=== PATIENT | male | born 1955 | race Asian ===

== ENCOUNTER 2018-02-14 18:41 | Inpatient (IN) | payer MEDICAID ==
--- NOTE | 2018-02-14 19:02 | ED Physician Chart ---
ED Chief Complaint/HPI - Patient Information Date Seen:: 02/14/18 Time Seen:: 18:45 Chief Complaint:: vomiting and diarrhea History of Present Illness:: Patient's had 3-4 times vomiting and diarrhea today. Further history is not available because patient is nonverbal. Allergies:: Allergies Allergy/AdvReac Type Severity Reaction Status Date / Time No Known Allergies Allergy Verified 02/14/18 18:45 Vitals:: Vital Signs - 8 hr 02/14/18 18:45 Temp 99.0 F HR 90 RR 17 BP 100/70 O2 Sat % 94 Historian:: EMS Review:: Transfer documents Reviewed ED Review of Systems - Review of Systems General/Constitutional: No fever, No chills, No weight loss, No weakness, No diaphoresis, No edema, No loss of appetite Skin: No skin lesions, No rash, No bruising Head: No headache, No light-headedness Eyes: No loss of vision, No pain, No diplopia ENT: No earache, No nasal drainage, No sore throat, No tinnitus Neck: No neck pain, No swelling, No thyromegaly, No stiffness, No mass noted Cardio Vascular: No chest pain, No palpitations, No PND, No orthopnea, No edema Pulmonary: No SOB, No cough, No sputum, No wheezing GI: Vomiting, Diarrhea, No pain, No melena, No hematochezia, No constipation, No hematemesis G/U: No dysuria, No frequency, No hematuria Musculoskeletal: No bone or joint pain, No back pain, No muscle pain Endocrine: No polyuria, No polydipsia Psychiatric: No prior psych history, No depression, No anxiety, No suicidal ideation Hematopoietic: No bruising, No lymphadenopathy Allergic/Immuno: No urticaria, No angioedema Neurological: No syncope, No focal symptoms, No weakness, No paresthesia, No headache, No seizure, No dizziness, No confusion, No vertigo ED Past Medical History - Past Medical History Past Medical History: Arthritis, Other (cerebral palsy; mental retardation; osteoporosis) Family History: Other (unavailable) Social History: Care Facility Surgical History: other (unavailable) Psychiatricy History: Other (mental retardation) Medication: Reviewed Family Medical History - Family Member Mother History Unknown: Yes ED Physical Exam - Physical Examination General/Constitutional: No distress Other Gen/Cons comments:: Chronically ill-appearing; nonverbal; supine with mouth was wide open Head: Atraumatic Eyes: Lids, conjuctiva normal, PERRL Skin: Nl inspection, No rash ENMT: External ears, nose nl Neck: No nuchal rigidity Respiratory: Nl effort/Exclusion Other Cardio Vascular comments:: Heart sounds inaudible GI: No organomegaly, No hernia, Normal BS's, No mass/bruits Other GI comments:: 2 out of 4 abdominal distention : No CVA tenderness Other Extremities comments:: Contracture wrists and hands Other Neuro/Psych comments:: Nonverbal ED Labs/Radiology/EKG Results - Lab Results Results: Laboratory Results - last 24 hr 02/14/18 02/14/18 19:00 19:00 WBC 23.7 H* RBC 5.18 Hgb 17.1 Hct 49.8 MCV 96.0 MCH 33.1 H MCHC Differential 34.4 RDW 12.0 Plt Count 309 MPV 7.4 Add Manual Diff YES Band Neutrophils % 5 Neutrophils (Manual) 82 H Lymphocytes 8 L Monocytes 5 Eosinophils 0 Basophils 0 Platelet Estimate ADEQUATE Sodium 139 Potassium 5.1 Chloride 105 Carbon Dioxide 23.4 Anion Gap 15.7 BUN 37 H Creatinine 0.7 Est GFR ( Amer) > 60.0 Est GFR (Non-Af Amer) > 60.0 BUN/Creatinine Ratio 52.9 Glucose 136 H Calcium 10.8 H Magnesium 3.3 H Lipase 18 ED Septic Shock - . Is Septic Shock (SBP<90, OR Lactate>4 mmol\L) present?: No - <6hrs of presentation: Vital Signs: Vital Signs - 8 hr 02/14/18 18:45 Temp 99.0 F HR 90 RR 17 BP 100/70 O2 Sat % 94 ED Reassessment (Disposition) - Reassessment Reassessment Condition:: Unchanged - Diagnosis Diagnosis:: Severe gastroenteritis; dehydration; leukocytosis with a left shift; altered mental status due to medical disability - Patient Disposition Admitted to:: Med/Surg Spoke to:: Naveen Siddiqui Admitting Medical Physician:: Naveen Siddiqui Condition at Disposition:: Stable
[2018-02-14 19:13] LABS: HEMATOCRIT 49.8 % (41.0-60); HEMOGLOBIN 17.1 gm/dL (12-16); MEAN CORPUSCULAR HEMOGLOBIN 33.1 pg (26.0-30.0); MEAN CORPUSCULAR HGB CONC 34.4 pg (28.0-36.0); MEAN PLATELET VOLUME 7.4 fl; PLATELET COUNT 309 Th/cmm (150-400); RED BLOOD COUNT 5.18 Mil/cmm (4.30-5.70)
[2018-02-14 19:15] LABS: WHITE BLOOD COUNT 23.7 Th/cmm (4.8-10.8)
[2018-02-14 19:24] LABS: ANION GAP 15.7 (7.0-16.0); BUN - UREA NITROGEN 37 mg/dL (7-25); CALCIUM SERUM 10.8 mg/dL (8.6-10.3); CARBON DIOXIDE 23.4 mEq/L (21.0-31.0); CHLORIDE 105 mEq/L (98-107); CREATININE - SERUM 0.7 mg/dL (0.7-1.3); GFR AFRICAN-AMERICAN > 60.0 ml/min (>90); GFR NON AFRICAN-AMERICAN > 60.0 ml/min; GLUCOSE 136 mg/dL (70-105); LIPASE 18 U/L (11-82); MAGNESIUM 3.3 mg/dL (1.9-2.7); POTASSIUM SERUM 5.1 mEq/L (3.5-5.1); SODIUM SERUM 139 mEq/L (136-145)
[2018-02-14 19:30] LABS: BAND NEUTROPHILE 5 % (0-10); BASOPHIL 0 % (0-3); EOSINOPHIL 0 % (0-5); LYMPHOCYTE 8 % (20-50); MONOCYTE 5 % (2-10); NEUTROPHILS 82 % (40-80); PLATELET ESTIMATE ADEQUATE (NORMAL)
[2018-02-14] MEDS ORDERED: Sodium Chloride 0.9% 1,000 ML IV ONE (20:03)
[2018-02-14 21:37] VITALS: BP 80/59
[2018-02-14] MEDS ORDERED: Pneumococcal Vaccine 0.5 mL Vial IM ONE (22:08)
[2018-02-14] MEDS ORDERED: SUNSCREEN TP PRN (22:18)
[2018-02-14] MEDS ORDERED: Fleet Enema 135 mL RC PRN (22:18)
[2018-02-14] MEDS ORDERED: Magnesium Hydroxide (MOM) 30 mL UDC PO PRN (22:18)
[2018-02-14] MEDS ORDERED: Albumin 25% 25gm/100mL 25 GM/100 ML BTL IV ONE (22:22)
[2018-02-14] MEDS ORDERED: D5-0.9%NS 1,000 ML IV SCH (22:30)
[2018-02-15] MEDS: Levofloxacin 500mg/100mL 500 MG/100 ML BAG IV SCH ×2 (01:19→22:36)
[2018-02-15 03:19] LABS: URINE MICROSCOPIC INDICATED? YES; URINE SOURCE CATH
[2018-02-15 03:20] LABS: URINE BLOOD LARGE (NEGATIVE); URINE GLUCOSE (UA) NEGATIVE (NEGATIVE); URINE KETONE TRACE mg/dL (NEGATIVE); URINE LEUKOCYTE ESTERASE MODERATE (NEGATIVE); URINE NITRATE POSITIVE (NEGATIVE); URINE PH 5.5 (4.6 - 8.0); URINE PROTEIN 100 mg/dL (NEGATIVE)
[2018-02-15 03:26] LABS: URINE CLARITY CLOUDY (CLEAR); URINE COLOR ORANGE
[2018-02-15 03:30] LABS: URINE BACTERIA MANY /hpf (NONE SEEN); URINE EPITHELIAL CELLS FEW /lpf (FEW); URINE WBC 50-100 /hpf (0-5)
[2018-02-15 03:45] LABS: URINE BILIRUBIN MODERATE (NEGATIVE)
[2018-02-15] MEDS: metroNIDAZOLE 500mg/NS 100mL 500 MG/100 ML BAG IV SCH ×3 (05:12→21:16)
[2018-02-15 06:42] LABS: % BASOPHILS 0.2 % (0.0-2.0); % EOSINOPHILS 0.1 % (0.0-5.0); % LYMPHOCYTES 21.6 % (20.0-50.0); % MONOCYTES 14.2 % (2.0-10.0); % NEUTROPHILS 63.9 % (40.0-80.0); HEMOGLOBIN 14.2 gm/dL (12-16); LYMPHOCYTE ABSOLUTE 2.2 Th/cmm (1.5-3.0); MEAN CELL VOLUME 96.8 fl (80-99); MEAN CORPUSCULAR HEMOGLOBIN 32.7 pg (26.0-30.0); MEAN CORPUSCULAR HGB CONC 33.8 pg (28.0-36.0); MEAN PLATELET VOLUME 7.7 fl; MONOCYTE ABSOLUTE 1.4 Th/cmm (0.3-1.0); NEUTROPHILE ABSOLUTE 6.4 Th/cmm (1.8-8.0); PLATELET COUNT 263 Th/cmm (150-400); RED BLOOD COUNT 4.34 Mil/cmm (4.30-5.70); RED CELL DISTRIBUTION WIDTH 11.9 % (11.5-20.0)
[2018-02-15 06:59] LABS: ALB/GLOB RATIO 1.4 (1.0-1.8); ALKALINE PHOSPHATASE 53 U/L (34-104); BILIRUBIN,TOTAL 0.7 mg/dL (0.3-1.0); BUN - UREA NITROGEN 38 mg/dL (7-25); CARBON DIOXIDE 22.4 mEq/L (21.0-31.0); CHLORIDE 111 mEq/L (98-107); CREATININE - SERUM 0.8 mg/dL (0.7-1.3); GFR AFRICAN-AMERICAN > 60.0 ml/min (>90); GFR NON AFRICAN-AMERICAN > 60.0 ml/min; GLUCOSE 122 mg/dL (70-105); POTASSIUM SERUM 4.4 mEq/L (3.5-5.1); SGOT 14 U/L (13-39); SGPT/ALT 7 U/L (7-52); SODIUM SERUM 142 mEq/L (136-145); TOTAL PROTEIN,SERUM 6.8 gm/dL (6.0-8.3)
[2018-02-15] MEDS: Albuterol Nebulizer 2.5mg/3mL HHN SCH ×4 (07:19→19:53)
[2018-02-15] MEDS ORDERED: IOHEXOL 300mgI/mL 100 ML VIAL IVP ONE (09:25)
[2018-02-15] MEDS ORDERED: VTE Chemical Prophylaxis Screen/Admission MC PRN (09:34)
[2018-02-15] MEDS: Calcium Carb/Vit D 500 mg/200 U Tab PO SCH ×2 (10:23→16:11)
[2018-02-15] MEDS: Multivitamin w/ Minerals Tab PO SCH (10:24)
[2018-02-15] MEDS: Vitamin A/Vitamin D 5 gm Packet TP SCH ×2 (10:24→16:11)
--- NOTE | 2018-02-15 11:42 | Internal Medicine Prog Note ---
Internal Medicine Subjective - Subjective Service Date: 02/15/18 ([facility] [id number]) Internal Medicine Objective - Results Result Diagrams: 02/15/18 06:15 02/15/18 06:15 Recent Labs: Laboratory Last Values WBC 10.0 Th/cmm (4.8-10.8) D 02/15/18 06:15 RBC 4.34 Mil/cmm (4.30-5.70) 02/15/18 06:15 Hgb 14.2 gm/dL (12-16) 02/15/18 06:15 Hct 42.0 % (41.0-60) D 02/15/18 06:15 MCV 96.8 fl (80-99) 02/15/18 06:15 MCH 32.7 pg (26.0-30.0) H 02/15/18 06:15 MCHC Differential 33.8 pg (28.0-36.0) 02/15/18 06:15 RDW 11.9 % (11.5-20.0) 02/15/18 06:15 Plt Count 263 Th/cmm (150-400) 02/15/18 06:15 MPV 7.7 fl 02/15/18 06:15 Add Manual Diff YES 02/14/18 19:00 Neutrophils % 63.9 % (40.0-80.0) 02/15/18 06:15 Band Neutrophils % 5 % (0-10) 02/14/18 19:00 Lymphocytes % 21.6 % (20.0-50.0) 02/15/18 06:15 Monocytes % 14.2 % (2.0-10.0) H 02/15/18 06:15 Eosinophils % 0.1 % (0.0-5.0) 02/15/18 06:15 Basophils % 0.2 % (0.0-2.0) 02/15/18 06:15 Neutrophils (Manual) 82 % (40-80) H 02/14/18 19:00 Lymphocytes 8 % (20-50) L 02/14/18 19:00 Monocytes 5 % (2-10) 02/14/18 19:00 Eosinophils 0 % (0-5) 02/14/18 19:00 Basophils 0 % (0-3) 02/14/18 19:00 Platelet Estimate ADEQUATE (NORMAL) 02/14/18 19:00 Sodium 142 mEq/L (136-145) 02/15/18 06:15 Potassium 4.4 mEq/L (3.5-5.1) 02/15/18 06:15 Chloride 111 mEq/L (98-107) H 02/15/18 06:15 Carbon Dioxide 22.4 mEq/L (21.0-31.0) 02/15/18 06:15 Anion Gap 13.0 (7.0-16.0) 02/15/18 06:15 BUN 38 mg/dL (7-25) H 02/15/18 06:15 Creatinine 0.8 mg/dL (0.7-1.3) 02/15/18 06:15 Est GFR ( Amer) > 60.0 ml/min (>90) 02/15/18 06:15 Est GFR (Non-Af Amer) > 60.0 ml/min 02/15/18 06:15 BUN/Creatinine Ratio 47.5 02/15/18 06:15 Glucose 122 mg/dL (70-105) H 02/15/18 06:15 Whole Bld Lactic Acid 1.53 mmol/L (0.60-1.99) 02/14/18 19:40 Calcium 9.0 mg/dL (8.6-10.3) 02/15/18 06:15 Magnesium 3.3 mg/dL (1.9-2.7) H 02/14/18 19:00 Total Bilirubin 0.7 mg/dL (0.3-1.0) 02/15/18 06:15 AST 14 U/L (13-39) 02/15/18 06:15 ALT 7 U/L (7-52) 02/15/18 06:15 Alkaline Phosphatase 53 U/L (34-104) 02/15/18 06:15 B-Natriuretic Peptide 31.7 pg/mL (5.0-100.0) 02/15/18 06:15 Total Protein 6.8 gm/dL (6.0-8.3) 02/15/18 06:15 Albumin 4.0 gm/dL (4.2-5.5) L 02/15/18 06:15 Globulin 2.8 gm/dL 02/15/18 06:15 Albumin/Globulin Ratio 1.4 (1.0-1.8) 02/15/18 06:15 Lipase 18 U/L (11-82) 02/14/18 19:00 TSH 1.01 uIU/ml (0.34-5.60) 02/15/18 06:15 Urine Source CATH 02/15/18 02:30 Urine Color ORANGE 02/15/18 02:30 Urine Clarity CLOUDY (CLEAR) 02/15/18 02:30 Urine pH 5.5 (4.6 - 8.0) 02/15/18 02:30 Ur Specific [place] >= 1.030 (1.005-1.030) 02/15/18 02:30 Urine Protein 100 mg/dL (NEGATIVE) H 02/15/18 02:30 Urine Glucose (UA) NEGATIVE mg/dL (NEGATIVE) 02/15/18 02:30 Urine Ketones TRACE mg/dL (NEGATIVE) 02/15/18 02:30 Urine Blood LARGE (NEGATIVE) H 02/15/18 02:30 Urine Nitrate POSITIVE (NEGATIVE) H 02/15/18 02:30 Urine Bilirubin MODERATE (NEGATIVE) H 02/15/18 02:30 Urine Urobilinogen 2.0 E.U./dL (0.2 - 1.0) 02/15/18 02:30 Ur Leukocyte Esterase MODERATE (NEGATIVE) H 02/15/18 02:30 Urine RBC 2-5 /hpf (0-5) H 02/15/18 02:30 Urine WBC 50-100 /hpf (0-5) H 02/15/18 02:30 Ur Epithelial Cells FEW /lpf (FEW) 02/15/18 02:30 Urine Bacteria MANY /hpf (NONE SEEN) H 02/15/18 02:30 - Physical Exam Vitals and I&O: Vital Signs Temp 98.0 F 02/15/18 08:00 Pulse 92 02/15/18 10:23 Resp 18 02/15/18 10:23 BP 99/67 02/15/18 08:00 Pulse Ox 94 02/15/18 10:23 Intake & Output 02/14/18 02/15/18 02/15/18 18:59 06:59 18:59 Intake Total 1200 100 Balance 1200 100 Weight (lbs) 86 lb 86 lb Intake: Intake, IV Amount 1200 100 Levofloxacin 500mg/100mL 100 500 mg In 100 ml @ 100 mls/hr IV Q24HR [facility] Rx#: [id number] metroNIDAZOLE 500mg/NS 100 100mL 500 mg In 100 ml @ 100 mls/hr IV Q8HR [facility] Rx #:[id number] Other: # Voids 4 # Bowel Movements 6 Stool Characteristics Soft Liquid Formed Brown Weight Source Estimated Bedscale Active Medications: Current Medications Acetaminophen (Tylenol) 650 mg PO Q4HR PRN PRN Reason: PAIN OR TEMP >99.9 Stop: 04/15/18 22:17 Albuterol Sulfate (Albuterol 2.5mg/3ml Neb Ud) 2.5 mg HHN QIDRT [facility] Stop: 04/16/18 06:59 Last Admin: 02/15/18 10:22 Dose: 2.5 mg Betamethasone Dipropionate (Betamethasone Dip 0.05% Cream) 1 appl TP BID [facility] Stop: 04/16/18 08:59 Last Admin: 02/15/18 10:25 Dose: Not Given Calcium/Vitamin D (Oscal W/Vitamin D) 1 tab PO BID [facility] Stop: 04/16/18 08:59 Last Admin: 02/15/18 10:23 Dose: Not Given Heparin Sodium (Porcine) (Heparin) 5,000 units SUBQ Q12HR [facility] Stop: 04/16/18 08:59 Last Admin: 02/15/18 10:25 Dose: Not Given Dextrose/Sodium Chloride (D5-0.9%Ns) 1,000 mls @ 100 mls/hr IV .Q10H [facility] Stop: 04/15/18 22:29 Last Admin: 02/15/18 00:00 Dose: 100 mls/hr Levofloxacin (Levaquin Pb) 500 mg in 100 mls @ 100 mls/hr IV Q24HR [facility] Stop: 04/15/18 22:29 Last Infusion: 02/15/18 02:55 Dose: Infused Metronidazole (Flagyl) 500 mg in 100 mls @ 100 mls/hr IV Q8HR [facility] Stop: 04/16/18 04:59 Last Infusion: 02/15/18 08:18 Dose: Infused Magnesium Hydroxide (Milk Of Magnesia) 30 ml PO Q72HR PRN PRN Reason: MILD CONSTIPATION Stop: 04/15/18 22:17 Miscellaneous (Vte Chemical Prophylaxis Screen/ Admission) 1 ea MC PRN PRN PRN Reason: PROTOCOL Stop: 04/16/18 09:33 Ondansetron HCl (Zofran) 4 mg IV Q8H PRN PRN Reason: Nausea / Vomiting Stop: 04/15/18 22:21 Last Admin: 02/15/18 05:25 Dose: 4 mg Pantoprazole Sodium (Protonix) 40 mg IVP BID [facility] Stop: 04/16/18 08:59 Last Admin: 02/15/18 10:24 Dose: Not Given Sodium Phosphate (Fleet Enema) 135 ml RC Q96H PRN PRN Reason: SEVERE CONSTIPATION Stop: 04/15/18 22:17 Vitamin A (Vitamin A & D) 5 gm TP BID [facility] Stop: 04/16/18 08:59 Last Admin: 02/15/18 10:24 Dose: Not Given
--- NOTE | 2018-02-15 12:09 | Diagnostic Imaging Report ---
CT scan abdomen and pelvis with intravenous contrast HISTORY: Vomiting, diarrhea Total DLP equals 419 CTDI equals 8.9 Following administration of intravenous contrast, axial sections were obtained from the xiphoid process down to the pubic symphysis. The exam of the liver demonstrates subcentimeter hypodense lesions within the anterior segment of the right lobe consistent with small cysts. The spleen appears normal. No focal abnormality seen within the pancreas. The gallbladder is somewhat dilated. No intraluminal abnormalities. The exam of the right kidney demonstrates a double pigtail ureteral catheter. The proximal tip is in the renal pelvis near the ureteropelvic junction. The distal tip is within the urinary bladder. Several cysts noted in the cortex of the left kidney. The largest measures approximately 1.0 cm. There is dilatation of the right renal collecting system. The left kidney also demonstrates several cysts. The largest measures approximately 1.3 cm. There is a dilated collecting system. Dilatation of the proximal portion of the left ureter. Exact etiology uncertain. If necessary, a noncontrast CT scan would provide for assessment of potential urinary tract calculi. There is a severely distended stool-filled rectum and sigmoid colon. Associated marked dilatation of the lower descending colon. Moderate air filled dilatation of the transverse and ascending colon. Findings consistent with changes of a fecal impaction. No other abnormal masses or fluid collections seen within the pelvis. Scoliosis and degenerative changes seen to the spine. Deformity about the left hip with partial subluxation of the femoral head. Slight subluxation and deformity involves the right hip. IMPRESSION: 1. Markedly distended stool-filled rectum and sigmoid colon associated with changes of a fecal impaction. 2. Right ureteral catheter 3. Mild dilatation of the left renal collecting system and proximalmost portion of the left ureter. Exact etiology uncertain. If necessary, a noncontrast CT scan would provide assessment of potential urinary tract calculi. 4. Bilateral renal cysts. Small hepatic cysts also noted. 5. Scoliosis and degenerative changes to the spine 6. Deformity about the hips as noted above
--- NOTE | 2018-02-15 12:12 | Diagnostic Imaging Report ---
Abdominal sound HISTORY: Pain The exam is extremely limited due to patient contracture and a large amount of bowel gas. Limited views of the liver do not reveal an obvious focal lesion. The gallbladder appears normal. No calculi are seen. No biliary dilatation. Pancreas cannot be seen. The right kidney measures 9.0 x 4.6 x 5.5 cm. An 8 mm echogenic density is noted in the medullary region. This may be related to a ureteral catheter demonstrated on a CT scan performed at 1108 hours. Underlying calculi cannot be excluded. The left kidney small (3.5 x 4.6 x 4.7 cm. 2 echogenic foci measuring 0.8 and 1.2 cm are noted near the medullary region. These may be related to calculi. A noncontrast CT scan would provide further assessment of radiopaque calculi. Spleen is normal in size. No other retroperitoneal or intra-abdominal abnormalities. IMPRESSION: 1. Extremely limited exam due to patient contracture, limited mobility, and considerable bowel gas. 2. Small echogenic focus within the medullary region of the right kidney. This may be related to CT demonstrated ureteral catheter. 3. Small echogenic foci within the left kidney. These may be associated with calculi. No hydronephrosis. If necessary, a noncontrast CT scan would provide for assessment of potential urinary tract calculi.
--- NOTE | 2018-02-15 12:34 | History & Physical ---
ADMIT DATE: 02/15/[address] Naveen Siddiqui. CHIEF COMPLAINT: Vomiting and diarrhea. HISTORY OF PRESENT ILLNESS: This is a 62-year-old male who is a resident of [facility], who is admitted here to the med-surg unit due to 1-day history of vomiting and diarrhea. The patient did not have any fevers at the residential. The patient is a poor historian. PAST MEDICAL HISTORY: Arthritis, cerebral palsy, MR, osteoporosis. FAMILY HISTORY: Noncontributory. SOCIAL HISTORY: The patient is a resident of [facility], requiring 24-hour nursing care. MEDICATIONS: Please see medication list. FAMILY HISTORY: Noncontributory. REVIEW OF SYSTEMS: Unable to obtain due to patient's mental status. PHYSICAL EXAMINATION: GENERAL: The patient is well developed, well nourished, in no apparent distress. VITAL SIGNS: Temperature 98.0, heart rate 90, blood pressure 199/67, respiration 18, O2 97%. HEENT: Head; normocephalic, atraumatic. NECK: Supple. No mass. LUNGS: Clear bilaterally. HEART: Regular rate and rhythm. ABDOMEN: Soft, nontender. LABORATORY DATA: WBC 10.0, H and H 14.2/42.0, platelet of 263. Sodium 142, potassium 4.4, chloride 111, BUN 38, creatinine 0.8. The patient had a urinalysis done, positive for UTI. ASSESSMENT: 1. Intractable vomiting. 2. Diarrhea. 3. Acute urinary tract infection. 4. Leukocytosis. 5. Acute renal insufficiency, rule out acute dehydration. 6. Cerebral palsy, mitral regurgitation, osteoporosis. PLAN: The patient will be admitted to the med/surg unit. We will get a wound care consultation as well as GI. We will get a CT of the abdomen and pelvis as well as ultrasound of the abdomen. We will collect stool for C. diff and cultures. We will send urine for cultures as well. Keep patient on empiric IV antibiotics and IV fluids for hydration. Monitor the patient's electrolytes closely and monitor patient's blood pressure. We will continue to monitor this patient. JOB# [id number]
[2018-02-15] MEDS: D5-0.45NS 1,000 ML IV SCH (13:36)
[2018-02-15] MEDS ORDERED: Probiotic Screen MC PRN (13:46)
--- NOTE | 2018-02-16 00:43 | Consultation ---
DATE OF CONSULTATION: 02/15/2018 INPATIENT GASTROINTESTINAL CONSULTATION REFERRING PHYSICIAN: Naveen Siddiqui D.O. REASON FOR CONSULTATION: Vomiting and diarrhea. HISTORY OF PRESENT ILLNESS: This is a 62-year-old male with vomiting and diarrhea and therefore was sent to the hospital. The patient is a poor historian, unable to give any meaningful history. PAST MEDICAL HISTORY: Cerebral palsy, mental retardation, osteoporosis. PAST SURGICAL HISTORY: None to add recently. FAMILY HISTORY: Noncontributory. SOCIAL HISTORY: Resident of skilled facility. ALLERGIES: None. CURRENT MEDICATIONS: Tylenol, heparin, Levaquin, milk of magnesia, Flagyl, Zofran, Protonix, Fleet enema, vitamin A and D. REVIEW OF SYSTEMS: Unobtainable. PHYSICAL EXAMINATION: VITAL SIGNS: Temperature 98.5, breathing 18, pulse of 90, blood pressure is 116/65, satting 93%. GENERAL: In no apparent distress. HEENT: Eyes are anicteric. Normal conjunctivae. Normocephalic, atraumatic. Moist mucous membranes. NECK: Soft, supple. CHEST: Clear. No effort. CARDIOVASCULAR: Regular rate and rhythm. ABDOMEN: Soft, nontender, mildly distended. SKIN: Warm, dry. EXTREMITIES: Revealed no cyanosis. PSYCHOLOGICAL: Awake. LABORATORY DATA: Show white count of 10, hemoglobin 14.2, platelets of 263. Total bilirubin 0.7, AST 14, ALT 7, alkaline phosphatase 53. Lipase is 18. UA is positive. IMPRESSION: A 62-year-old male with vomiting and diarrhea of unclear etiology, could be from infectious etiology, could be paradoxical overflow diarrhea or underlying constipation, could be ileus versus obstruction, could be gallstones. RECOMMENDATIONS: 1. Get a CT abdomen and pelvis. 2. Check stool studies. 3. Check an abdominal ultrasound. 4. Defer UTI management to the primary doctor. Thank you for allowing me to participate. Please call me if you have any questions. JOB# [id number]
[2018-02-16] MEDS: metroNIDAZOLE 500mg/NS 100mL 500 MG/100 ML BAG IV SCH ×3 (04:48→22:03)
[2018-02-16] MEDS: D5-0.45NS 1,000 ML IV SCH ×2 (04:49→17:02)
[2018-02-16 07:04] LABS: % BASOPHILS 0.2 % (0.0-2.0); % EOSINOPHILS 0.4 % (0.0-5.0); % LYMPHOCYTES 27.7 % (20.0-50.0); % NEUTROPHILS 57.7 % (40.0-80.0); HEMATOCRIT 37.9 % (41.0-60); MEAN CELL VOLUME 98.1 fl (80-99); MEAN CORPUSCULAR HEMOGLOBIN 33.6 pg (26.0-30.0); MEAN CORPUSCULAR HGB CONC 34.2 pg (28.0-36.0); MEAN PLATELET VOLUME 7.6 fl; NEUTROPHILE ABSOLUTE 4.1 Th/cmm (1.8-8.0); PLATELET COUNT 238 Th/cmm (150-400); RED BLOOD COUNT 3.87 Mil/cmm (4.30-5.70); RED CELL DISTRIBUTION WIDTH 11.8 % (11.5-20.0); WHITE BLOOD COUNT 7.1 Th/cmm (4.8-10.8)
[2018-02-16 07:20] LABS: ANION GAP 9.2 (7.0-16.0); BUN - UREA NITROGEN 23 mg/dL (7-25); CALCIUM SERUM 8.2 mg/dL (8.6-10.3); CHLORIDE 114 mEq/L (98-107); CREATININE - SERUM 0.6 mg/dL (0.7-1.3); GFR AFRICAN-AMERICAN > 60.0 ml/min (>90); GFR NON AFRICAN-AMERICAN > 60.0 ml/min; GLUCOSE 96 mg/dL (70-105); POTASSIUM SERUM 3.2 mEq/L (3.5-5.1); SODIUM SERUM 144 mEq/L (136-145)
[2018-02-16] MEDS: Albuterol Nebulizer 2.5mg/3mL HHN SCH ×4 (07:26→19:21)
[2018-02-16] MEDS: Lactobacillus Rhamnosus GG 15 Billion CFU CAP.SPRINK PO SCH (09:56)
[2018-02-16] MEDS: Multivitamin w/ Minerals Tab PO SCH (09:56)
[2018-02-16] MEDS: Vitamin A/Vitamin D 5 gm Packet TP SCH ×2 (09:56→16:56)
[2018-02-16] MEDS: Calcium Carb/Vit D 500 mg/200 U Tab PO SCH ×2 (09:56→16:56)
--- NOTE | 2018-02-16 15:03 | Internal Medicine Prog Note ---
Internal Medicine Subjective - Subjective Service Date: 02/16/18 Patient seen and examined:: with staff Patient is:: awake, non-verbal Per staff patient has:: no adverse event Internal Medicine Objective - Results Result Diagrams: 02/16/18 06:22 02/16/18 06:22 Recent Labs: Laboratory Last Values WBC 7.1 Th/cmm (4.8-10.8) 02/16/18 06:22 RBC 3.87 Mil/cmm (4.30-5.70) L 02/16/18 06:22 Hgb 13.0 gm/dL (12-16) 02/16/18 06:22 Hct 37.9 % (41.0-60) L 02/16/18 06:22 MCV 98.1 fl (80-99) 02/16/18 06:22 MCH 33.6 pg (26.0-30.0) H 02/16/18 06:22 MCHC Differential 34.2 pg (28.0-36.0) 02/16/18 06:22 RDW 11.8 % (11.5-20.0) 02/16/18 06:22 Plt Count 238 Th/cmm (150-400) 02/16/18 06:22 MPV 7.6 fl 02/16/18 06:22 Add Manual Diff YES 02/14/18 19:00 Neutrophils % 57.7 % (40.0-80.0) 02/16/18 06:22 Band Neutrophils % 5 % (0-10) 02/14/18 19:00 Lymphocytes % 27.7 % (20.0-50.0) 02/16/18 06:22 Monocytes % 14.0 % (2.0-10.0) H 02/16/18 06:22 Eosinophils % 0.4 % (0.0-5.0) 02/16/18 06:22 Basophils % 0.2 % (0.0-2.0) 02/16/18 06:22 Neutrophils (Manual) 82 % (40-80) H 02/14/18 19:00 Lymphocytes 8 % (20-50) L 02/14/18 19:00 Monocytes 5 % (2-10) 02/14/18 19:00 Eosinophils 0 % (0-5) 02/14/18 19:00 Basophils 0 % (0-3) 02/14/18 19:00 Platelet Estimate ADEQUATE (NORMAL) 02/14/18 19:00 Sodium 144 mEq/L (136-145) 02/16/18 06:22 Potassium 3.2 mEq/L (3.5-5.1) L 02/16/18 06:22 Chloride 114 mEq/L (98-107) H 02/16/18 06:22 Carbon Dioxide 24.0 mEq/L (21.0-31.0) 02/16/18 06:22 Anion Gap 9.2 (7.0-16.0) 02/16/18 06:22 BUN 23 mg/dL (7-25) 02/16/18 06:22 Creatinine 0.6 mg/dL (0.7-1.3) L 02/16/18 06:22 Est GFR ( Amer) > 60.0 ml/min (>90) 02/16/18 06:22 Est GFR (Non-Af Amer) > 60.0 ml/min 02/16/18 06:22 BUN/Creatinine Ratio 38.3 02/16/18 06:22 Glucose 96 mg/dL (70-105) 02/16/18 06:22 Whole Bld Lactic Acid 1.53 mmol/L (0.60-1.99) 02/14/18 19:40 Calcium 8.2 mg/dL (8.6-10.3) L 02/16/18 06:22 Magnesium 3.3 mg/dL (1.9-2.7) H 02/14/18 19:00 Total Bilirubin 0.7 mg/dL (0.3-1.0) 02/15/18 06:15 AST 14 U/L (13-39) 02/15/18 06:15 ALT 7 U/L (7-52) 02/15/18 06:15 Alkaline Phosphatase 53 U/L (34-104) 02/15/18 06:15 B-Natriuretic Peptide 31.7 pg/mL (5.0-100.0) 02/15/18 06:15 Total Protein 6.8 gm/dL (6.0-8.3) 02/15/18 06:15 Albumin 4.0 gm/dL (4.2-5.5) L 02/15/18 06:15 Globulin 2.8 gm/dL 02/15/18 06:15 Albumin/Globulin Ratio 1.4 (1.0-1.8) 02/15/18 06:15 Lipase 18 U/L (11-82) 02/14/18 19:00 TSH 1.01 uIU/ml (0.34-5.60) 02/15/18 06:15 Urine Source CATH 02/15/18 02:30 Urine Color ORANGE 02/15/18 02:30 Urine Clarity CLOUDY (CLEAR) 02/15/18 02:30 Urine pH 5.5 (4.6 - 8.0) 02/15/18 02:30 Ur Specific [place] >= 1.030 (1.005-1.030) 02/15/18 02:30 Urine Protein 100 mg/dL (NEGATIVE) H 02/15/18 02:30 Urine Glucose (UA) NEGATIVE mg/dL (NEGATIVE) 02/15/18 02:30 Urine Ketones TRACE mg/dL (NEGATIVE) 02/15/18 02:30 Urine Blood LARGE (NEGATIVE) H 02/15/18 02:30 Urine Nitrate POSITIVE (NEGATIVE) H 02/15/18 02:30 Urine Bilirubin MODERATE (NEGATIVE) H 02/15/18 02:30 Urine Urobilinogen 2.0 E.U./dL (0.2 - 1.0) 02/15/18 02:30 Ur Leukocyte Esterase MODERATE (NEGATIVE) H 02/15/18 02:30 Urine RBC 2-5 /hpf (0-5) H 02/15/18 02:30 Urine WBC 50-100 /hpf (0-5) H 02/15/18 02:30 Ur Epithelial Cells FEW /lpf (FEW) 02/15/18 02:30 Urine Bacteria MANY /hpf (NONE SEEN) H 02/15/18 02:30 - Physical Exam Vitals and I&O: Vital Signs Temp 97.0 F 02/16/18 12:19 Pulse 61 02/16/18 12:19 Resp 18 02/16/18 12:19 BP 109/69 02/16/18 12:19 Pulse Ox 98 02/16/18 12:19 Intake & Output 02/15/18 02/16/18 02/16/18 18:59 06:59 18:59 Intake Total 200 1300 Balance 200 1300 Weight (lbs) 86 lb Intake: Intake, IV Amount 200 1300 D5-0.45NS 1,000 ml @ 80 1000 mls/hr IV .[id number] [facility] Rx #:[id number] Levofloxacin 500mg/100mL 100 500 mg In 100 ml @ 100 mls/hr IV Q24HR [facility] Rx#: [id number] metroNIDAZOLE 500mg/NS 200 200 100mL 500 mg In 100 ml @ 100 mls/hr IV Q8HR [facility] Rx #:[id number] Other: # Voids 3 Stool Characteristics Liquid Liquid Weight Source Bedscale Active Medications: Current Medications Acetaminophen (Tylenol) 650 mg PO Q4HR PRN PRN Reason: PAIN OR TEMP >99.9 Stop: 04/15/18 22:17 Albuterol Sulfate (Albuterol 2.5mg/3ml Neb Ud) 2.5 mg HHN QIDRT [facility] Stop: 04/16/18 06:59 Last Admin: 02/16/18 11:37 Dose: 2.5 mg Betamethasone Dipropionate (Betamethasone Dip 0.05% Cream) 1 appl TP BID [facility] Stop: 04/16/18 08:59 Last Admin: 02/16/18 09:56 Dose: 1 appl Calcium/Vitamin D (Oscal W/Vitamin D) 1 tab PO BID [facility] Stop: 04/16/18 08:59 Last Admin: 02/16/18 09:56 Dose: 1 tab Heparin Sodium (Porcine) (Heparin) 5,000 units SUBQ Q12HR [facility] Stop: 04/16/18 08:59 Last Admin: 02/16/18 10:16 Dose: 5,000 units Levofloxacin (Levaquin Pb) 500 mg in 100 mls @ 100 mls/hr IV Q24HR [facility] Stop: 04/15/18 22:29 Last Infusion: 02/15/18 23:36 Dose: Infused Metronidazole (Flagyl) 500 mg in 100 mls @ 100 mls/hr IV Q8HR [facility] Stop: 04/16/18 04:59 Last Admin: 02/16/18 13:11 Dose: 100 mls/hr Dextrose/Sodium Chloride (D5-0.45ns) 1,000 mls @ 80 mls/hr IV .[id number] [facility] Stop: 04/16/18 12:59 Last Admin: 02/16/18 04:49 Dose: 80 mls/hr Lactobacillus Rhamnosus (Culturelle 15b) 1 each PO DAILY [facility] Stop: 04/17/18 08:59 Last Admin: 02/16/18 09:56 Dose: 1 each Loperamide HCl (Imodium) 4 mg PO Q4HR PRN PRN Reason: Diarrhea Stop: 04/16/18 16:30 Magnesium Hydroxide (Milk Of Magnesia) 30 ml PO Q72HR PRN PRN Reason: MILD CONSTIPATION Stop: 04/15/18 22:17 Midodrine (Proamatine) 5 mg PO TID [facility] Stop: 04/17/18 08:59 Last Admin: 02/16/18 13:16 Dose: 5 mg Miscellaneous (Vte Chemical Prophylaxis Screen/ Admission) 1 ea PRN PRN PRN Reason: PROTOCOL Stop: 04/16/18 09:33 Miscellaneous (Probiotic Screen) 1 [facility] [place] PRN PRN PRN Reason: PROTOCOL Stop: 04/16/18 13:45 Ondansetron HCl (Zofran) 4 mg IV Q8H PRN PRN Reason: Nausea / Vomiting Stop: 04/15/18 22:21 Last Admin: 02/15/18 05:25 Dose: 4 mg Pantoprazole Sodium (Protonix) 40 mg IVP BID [facility] Stop: 04/16/18 08:59 Last Admin: 02/16/18 09:56 Dose: 40 mg Sodium Phosphate (Fleet Enema) 135 ml RC Q96H PRN PRN Reason: SEVERE CONSTIPATION Stop: 04/15/18 22:17 Vitamin A (Vitamin A & D) 5 gm TP BID [facility] Stop: 04/16/18 08:59 Last Admin: 02/16/18 09:56 Dose: 5 gm General: alert HEENT: NC/AT, PERRLA Neck: Supple Lungs: CTAB Cardiovascular: RRR, Normal S1, without murmur Abdomen: soft, non-tender, non-distended, positive bowel sound Internal Medicine Assmt/Plan - Assessment Assessment: intractable vomiting diarrhea acute uti leukocytosis acute renal insufficiency r/o acute dehydration cerebral palsy mitral regurgitation osteoporosis - Plan Plan: continue ivf for hydration iv antibiotic to continue follow up labs in am continue current plan of care Nutritional Asmnt/Malnutr-PDOC - Dietary Evaluation Malnutrition Findings (Please click <Entered> for more info): Nutritional Asmnt/Malnutrition Start: 02/15/18 15: 34 Text: Status: Complete Freq: Protocol: Document 02/15/18 15:36 LCANNE (Rec: 02/15/18 16:11 LCANNE [email or web address]) Nutritional Asmnt/Malnutrition Patient General Information Nutritional Screening High Risk Diagnosis gastroenteritis, dehydration Pertinent Medical Hx/Surgical Hx arthritis, CP, mental retardation, osteoporosis Subjective Information Pt seen lying in bed at time of visit, non-verbal. Per nurse note, pt had several liquid stool today, sent for C diff test, no vomiting noted. Current Diet Order/ Nutrition Support NPO Pertinent Medications oscal w/vit D, D5-0.45ns, culturelle, levaquin, protonix , zofran, Christina&D Pertinent Labs 02/15 Cl 111, BUN 36, Glucose 122 Nutritional Hx/Data Height 5 ft Height (Calculated Centimeters) 152.4 Current Weight (lbs) 86 lb Weight (Calculated Kilograms) 39.0 Weight (Calculated Grams) [address]11.9 [place] Body Weight 106 Body Mass Index (BMI) 16.7 Weight Status Underweight GI Symptoms GI Symptoms Diarrhea Last BM 02/15 Skin Integrity/Comment: discoloration on buttocks, right and left buttocks blanchable redness Estimated Nutritional Goals BEE in Kcals: Using Current wt Calories/Kcals/Kg 30-35 Kcals Calculated 5011-6606 Protein: Using Current wt Protein g/k.2-1.4 Protein Calculated 48-56 Fluid: ml 1200-1400ml (1ml/kcal) Nutritional Problem 1. Problem Problem inadequate food intake Etiology diarrhea Signs/Symptoms: pt on NPO Malnutrition Alert Is there a minimum of two criteria No selected? Query Text:Check all the applicable criteria. A minimum of two criteria are recommended for diagnosis of either severe or non-severe malnutrition. Malnutrition Related to Morbid Obesity Malnutrition related to morbid obesity No Intervention/Recommendation Comments 1. Monitor NPO status. Start with clear liquid diet as tolerated if medically appropriate. 2. Monitor GI function, wt, labs and skin integrity 3. F/U as high risk in 2-3 days, 02/17-02/18 Expected Outcomes/Goals Expected Outcomes/Goals 1. PO intake to meet at least 75% of nutritional needs. 2. Wt stability, GI function to improve, skin to remain intact, labs to approach WNL.
[2018-02-16] MEDS: Levofloxacin 500mg/100mL 500 MG/100 ML BAG IV SCH (23:57)
[2018-02-17] MEDS: metroNIDAZOLE 500mg/NS 100mL 500 MG/100 ML BAG IV SCH ×3 (04:43→20:27)
[2018-02-17] MEDS: Albuterol Nebulizer 2.5mg/3mL HHN SCH ×4 (06:25→19:20)
[2018-02-17] MEDS: Multivitamin w/ Minerals Tab PO SCH (09:54)
[2018-02-17] MEDS: Calcium Carb/Vit D 500 mg/200 U Tab PO SCH ×2 (09:54→16:57)
[2018-02-17] MEDS: Vitamin A/Vitamin D 5 gm Packet TP SCH ×2 (09:55→16:59)
[2018-02-17] MEDS: Lactobacillus Rhamnosus GG 15 Billion CFU CAP.SPRINK PO SCH (09:55)
[2018-02-17] MEDS: D5-0.45NS 1,000 ML IV SCH (10:11)
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
--- NOTE | 2018-02-17 15:52 | Internal Medicine Prog Note ---
Internal Medicine Subjective - Subjective Service Date: 02/17/18 Patient is:: awake, non-verbal Per staff patient has:: no adverse event Internal Medicine Objective - Results Result Diagrams: 02/16/18 06:22 02/16/18 06:22 Recent Labs: Laboratory Last Values WBC 7.1 Th/cmm (4.8-10.8) 02/16/18 06:22 RBC 3.87 Mil/cmm (4.30-5.70) L 02/16/18 06:22 Hgb 13.0 gm/dL (12-16) 02/16/18 06:22 Hct 37.9 % (41.0-60) L 02/16/18 06:22 MCV 98.1 fl (80-99) 02/16/18 06:22 MCH 33.6 pg (26.0-30.0) H 02/16/18 06:22 MCHC Differential 34.2 pg (28.0-36.0) 02/16/18 06:22 RDW 11.8 % (11.5-20.0) 02/16/18 06:22 Plt Count 238 Th/cmm (150-400) 02/16/18 06:22 MPV 7.6 fl 02/16/18 06:22 Add Manual Diff YES 02/14/18 19:00 Neutrophils % 57.7 % (40.0-80.0) 02/16/18 06:22 Band Neutrophils % 5 % (0-10) 02/14/18 19:00 Lymphocytes % 27.7 % (20.0-50.0) 02/16/18 06:22 Monocytes % 14.0 % (2.0-10.0) H 02/16/18 06:22 Eosinophils % 0.4 % (0.0-5.0) 02/16/18 06:22 Basophils % 0.2 % (0.0-2.0) 02/16/18 06:22 Neutrophils (Manual) 82 % (40-80) H 02/14/18 19:00 Lymphocytes 8 % (20-50) L 02/14/18 19:00 Monocytes 5 % (2-10) 02/14/18 19:00 Eosinophils 0 % (0-5) 02/14/18 19:00 Basophils 0 % (0-3) 02/14/18 19:00 Platelet Estimate ADEQUATE (NORMAL) 02/14/18 19:00 Sodium 144 mEq/L (136-145) 02/16/18 06:22 Potassium 3.2 mEq/L (3.5-5.1) L 02/16/18 06:22 Chloride 114 mEq/L (98-107) H 02/16/18 06:22 Carbon Dioxide 24.0 mEq/L (21.0-31.0) 02/16/18 06:22 Anion Gap 9.2 (7.0-16.0) 02/16/18 06:22 BUN 23 mg/dL (7-25) 02/16/18 06:22 Creatinine 0.6 mg/dL (0.7-1.3) L 02/16/18 06:22 Est GFR ( Amer) > 60.0 ml/min (>90) 02/16/18 06:22 Est GFR (Non-Af Amer) > 60.0 ml/min 02/16/18 06:22 BUN/Creatinine Ratio 38.3 02/16/18 06:22 Glucose 96 mg/dL (70-105) 02/16/18 06:22 Whole Bld Lactic Acid 1.53 mmol/L (0.60-1.99) 02/14/18 19:40 Calcium 8.2 mg/dL (8.6-10.3) L 02/16/18 06:22 Magnesium 3.3 mg/dL (1.9-2.7) H 02/14/18 19:00 Total Bilirubin 0.7 mg/dL (0.3-1.0) 02/15/18 06:15 AST 14 U/L (13-39) 02/15/18 06:15 ALT 7 U/L (7-52) 02/15/18 06:15 Alkaline Phosphatase 53 U/L (34-104) 02/15/18 06:15 B-Natriuretic Peptide 31.7 pg/mL (5.0-100.0) 02/15/18 06:15 Total Protein 6.8 gm/dL (6.0-8.3) 02/15/18 06:15 Albumin 4.0 gm/dL (4.2-5.5) L 02/15/18 06:15 Globulin 2.8 gm/dL 02/15/18 06:15 Albumin/Globulin Ratio 1.4 (1.0-1.8) 02/15/18 06:15 Lipase 18 U/L (11-82) 02/14/18 19:00 TSH 1.01 uIU/ml (0.34-5.60) 02/15/18 06:15 Urine Source CATH 02/15/18 02:30 Urine Color ORANGE 02/15/18 02:30 Urine Clarity CLOUDY (CLEAR) 02/15/18 02:30 Urine pH 5.5 (4.6 - 8.0) 02/15/18 02:30 Ur Specific [place] >= 1.030 (1.005-1.030) 02/15/18 02:30 Urine Protein 100 mg/dL (NEGATIVE) H 02/15/18 02:30 Urine Glucose (UA) NEGATIVE mg/dL (NEGATIVE) 02/15/18 02:30 Urine Ketones TRACE mg/dL (NEGATIVE) 02/15/18 02:30 Urine Blood LARGE (NEGATIVE) H 02/15/18 02:30 Urine Nitrate POSITIVE (NEGATIVE) H 02/15/18 02:30 Urine Bilirubin MODERATE (NEGATIVE) H 02/15/18 02:30 Urine Urobilinogen 2.0 E.U./dL (0.2 - 1.0) 02/15/18 02:30 Ur Leukocyte Esterase MODERATE (NEGATIVE) H 02/15/18 02:30 Urine RBC 2-5 /hpf (0-5) H 02/15/18 02:30 Urine WBC 50-100 /hpf (0-5) H 02/15/18 02:30 Ur Epithelial Cells FEW /lpf (FEW) 02/15/18 02:30 Urine Bacteria MANY /hpf (NONE SEEN) H 02/15/18 02:30 - Physical Exam Vitals and I&O: Vital Signs Temp 97.4 F 02/17/18 12:38 Pulse 80 02/17/18 15:10 Resp 16 02/17/18 15:10 BP 104/51 02/17/18 12:38 Pulse Ox 98 02/17/18 15:10 Intake & Output 02/16/18 02/17/18 02/17/18 18:59 06:59 18:59 Intake Total 9534.237 9534 Balance 5303.848 6701 Weight (lbs) 86 lb Intake: Intake, IV Amount 0994.640 6650 D5-0.45NS 1,000 ml @ 80 450.872 3677 mls/hr IV .[id number] [facility] Rx #:[id number] Levofloxacin 500mg/100mL 100 500 mg In 100 ml @ 100 mls/hr IV Q24HR [facility] Rx#: [id number] metroNIDAZOLE 500mg/NS 100 200 100mL 500 mg In 100 ml @ 100 mls/hr IV Q8HR [facility] Rx #:[id number] Oral 100 Other: # Voids 2 # Bowel Movements 2 Stool Characteristics Liquid Liquid Liquid Weight Source Bedscale Active Medications: Current Medications Acetaminophen (Tylenol) 650 mg PO Q4HR PRN PRN Reason: PAIN OR TEMP >99.9 Stop: 04/15/18 22:17 Last Admin: 02/17/18 04:15 Dose: 650 mg Albuterol Sulfate (Albuterol 2.5mg/3ml Neb Ud) 2.5 mg HHN QIDRT [facility] Stop: 04/16/18 06:59 Last Admin: 02/17/18 15:10 Dose: 2.5 mg Betamethasone Dipropionate (Betamethasone Dip 0.05% Cream) 1 appl TP BID [facility] Stop: 04/16/18 08:59 Last Admin: 02/17/18 09:55 Dose: 1 appl Bisacodyl (Dulcolax 5 Mg Ec Tab) 10 mg PO X1 ONE Stop: 02/17/18 16:01 Calcium/Vitamin D (Oscal W/Vitamin D) 1 tab PO BID [facility] Stop: 04/16/18 08:59 Last Admin: 02/17/18 09:54 Dose: 1 tab Heparin Sodium (Porcine) (Heparin) 5,000 units SUBQ Q12HR [facility] Stop: 04/16/18 08:59 Last Admin: 02/17/18 09:55 Dose: 5,000 units Levofloxacin (Levaquin Pb) 500 mg in 100 mls @ 100 mls/hr IV Q24HR [facility] Stop: 04/15/18 22:29 Last Infusion: 02/17/18 04:02 Dose: Infused Metronidazole (Flagyl) 500 mg in 100 mls @ 100 mls/hr IV Q8HR [facility] Stop: 04/16/18 04:59 Last Admin: 02/17/18 12:28 Dose: 100 mls/hr Dextrose/Sodium Chloride (D5-0.45ns) 1,000 mls @ 80 mls/hr IV .[id number] [facility] Stop: 04/16/18 12:59 Last Admin: 02/17/18 10:11 Dose: 80 mls/hr Lactobacillus Rhamnosus (Culturelle 15b) 1 each PO DAILY [facility] Stop: 04/17/18 08:59 Last Admin: 02/17/18 09:55 Dose: 1 each Loperamide HCl (Imodium) 4 mg PO Q4HR PRN PRN Reason: Diarrhea Stop: 04/16/18 16:30 Magnesium Hydroxide (Milk Of Magnesia) 30 ml PO Q72HR PRN PRN Reason: MILD CONSTIPATION Stop: 04/15/18 22:17 Midodrine (Proamatine) 5 mg PO TID [facility] Stop: 04/17/18 08:59 Last Admin: 02/17/18 14:22 Dose: 5 mg Miscellaneous (Vte Chemical Prophylaxis Screen/ Admission) 1 ea PRN PRN PRN Reason: PROTOCOL Stop: 04/16/18 09:33 Miscellaneous (Probiotic Screen) 1 ea PRN PRN PRN Reason: PROTOCOL Stop: 04/16/18 13:45 Ondansetron HCl (Zofran) 4 mg IV Q8H PRN PRN Reason: Nausea / Vomiting Stop: 04/15/18 22:21 Last Admin: 02/15/18 05:25 Dose: 4 mg Pantoprazole Sodium (Protonix) 40 mg IVP BID [facility] Stop: 04/16/18 08:59 Last Admin: 02/17/18 09:55 Dose: 40 mg Sodium Phosphate (Fleet Enema) 135 ml RC Q96H PRN PRN Reason: SEVERE CONSTIPATION Stop: 04/15/18 22:17 Vitamin A (Vitamin A & D) 5 gm TP BID [facility] Stop: 04/16/18 08:59 Last Admin: 02/17/18 09:55 Dose: 5 gm General: alert HEENT: NC/AT, PERRLA Neck: Supple Lungs: CTAB Cardiovascular: RRR, Normal S1, without murmur Abdomen: soft, non-tender, non-distended, positive bowel sound Internal Medicine Assmt/Plan - Assessment Assessment: intractable vomiting-resolved diarrhea-resolved acute uti with esbl e.coli urine leukocytosis acute renal insufficiency r/o acute dehydration cerebral palsy mitral regurgitation osteoporosis - Plan Plan: LTAC EVAL continue ivf for hydration iv antibiotic to continue follow up labs in am continue current plan of care Nutritional Asmnt/Malnutr-PDOC - Dietary Evaluation Malnutrition Findings (Please click <Entered> for more info): Nutritional Asmnt/Malnutrition Start: 02/15/18 15: 34 Text: Status: Complete Freq: Protocol: Document 02/15/18 15:36 ROBERTH (Rec: 02/15/18 16:11 ROBERTH [email or web address]) Nutritional Asmnt/Malnutrition Patient General Information Nutritional Screening High Risk Diagnosis gastroenteritis, dehydration Pertinent Medical Hx/Surgical Hx arthritis, CP, mental retardation, osteoporosis Subjective Information Pt seen lying in bed at time of visit, non-verbal. Per nurse note, pt had several liquid stool today, sent for C diff test, no vomiting noted. Current Diet Order/ Nutrition Support NPO Pertinent Medications oscal w/vit D, D5-0.45ns, culturelle, levaquin, protonix , zofran, Christina&D Pertinent Labs 02/15 Cl 111, BUN 36, Glucose 122 Nutritional Hx/Data Height 5 ft Height (Calculated Centimeters) 152.4 Current Weight (lbs) 86 lb Weight (Calculated Kilograms) 39.0 Weight (Calculated Grams) 31714.9 [place] Body Weight 106 Body Mass Index (BMI) 16.7 Weight Status Underweight GI Symptoms GI Symptoms Diarrhea Last BM 02/15 Skin Integrity/Comment: discoloration on buttocks, right and left buttocks blanchable redness Estimated Nutritional Goals BEE in Kcals: Using Current wt Calories/Kcals/Kg 30-35 Kcals Calculated 5943-6626 Protein: Using Current wt Protein g/k.2-1.4 Protein Calculated 48-56 Fluid: ml 1200-1400ml (1ml/kcal) Nutritional Problem 1. Problem Problem inadequate food intake Etiology diarrhea Signs/Symptoms: pt on NPO Malnutrition Alert Is there a minimum of two criteria No selected? Query Text:Check all the applicable criteria. A minimum of two criteria are recommended for diagnosis of either severe or non-severe malnutrition. Malnutrition Related to Morbid Obesity Malnutrition related to morbid obesity No Intervention/Recommendation Comments 1. Monitor NPO status. Start with clear liquid diet as tolerated if medically appropriate. 2. Monitor GI function, wt, labs and skin integrity 3. F/U as high risk in 2-3 days, 02/17-02/18 Expected Outcomes/Goals Expected Outcomes/Goals 1. PO intake to meet at least 75% of nutritional needs. 2. Wt stability, GI function to improve, skin to remain intact, labs to approach WNL.
[2018-02-17] MEDS ORDERED: Potassium Chloride 20 mEq ER Tab PO ONE (15:53)
[2018-02-17] MEDS: Meropenem 1 GM in Sodium Chloride 0.9% 100 ML IV SCH (17:19)
[2018-02-18] MEDS: D5-0.45NS 1,000 ML IV SCH ×2 (02:07→15:27)
[2018-02-18] MEDS: Meropenem 1 GM in Sodium Chloride 0.9% 100 ML IV SCH ×2 (03:38→15:30)
[2018-02-18 05:09] LABS: % BASOPHILS 0.7 % (0.0-2.0); % EOSINOPHILS 2.7 % (0.0-5.0); % LYMPHOCYTES 30.8 % (20.0-50.0); % MONOCYTES 8.9 % (2.0-10.0); % NEUTROPHILS 56.9 % (40.0-80.0); BASOPHILE ABSOLUTE 0.1 Th/cumm (0-0.2); EOSINOPHILE ABSOLUTE 0.2 Th/cmm (0.1-0.4); HEMATOCRIT 39.7 % (41.0-60); HEMOGLOBIN 13.5 gm/dL (12-16); LYMPHOCYTE ABSOLUTE 2.6 Th/cmm (1.5-3.0); MEAN CELL VOLUME 96.4 fl (80-99); MEAN CORPUSCULAR HEMOGLOBIN 32.9 pg (26.0-30.0); MEAN CORPUSCULAR HGB CONC 34.1 pg (28.0-36.0); MEAN PLATELET VOLUME 7.5 fl; MONOCYTE ABSOLUTE 0.8 Th/cmm (0.3-1.0); NEUTROPHILE ABSOLUTE 4.8 Th/cmm (1.8-8.0); PLATELET COUNT 269 Th/cmm (150-400); RED BLOOD COUNT 4.12 Mil/cmm (4.30-5.70); RED CELL DISTRIBUTION WIDTH 11.5 % (11.5-20.0); WHITE BLOOD COUNT 8.5 Th/cmm (4.8-10.8)
[2018-02-18 05:15] LABS: INR 1.19 (0.5-1.4); PROTHROMBIN TIME (TEST) 12.5 SECONDS (9.5-11.5)
[2018-02-18 05:25] LABS: ANION GAP 10.9 (7.0-16.0); BUN - UREA NITROGEN 7 mg/dL (7-25); CARBON DIOXIDE 25.4 mEq/L (21.0-31.0); CHLORIDE 108 mEq/L (98-107); CREATININE - SERUM 0.5 mg/dL (0.7-1.3); GFR AFRICAN-AMERICAN > 60.0 ml/min (>90); GFR NON AFRICAN-AMERICAN > 60.0 ml/min; GLUCOSE 105 mg/dL (70-105); POTASSIUM SERUM 3.3 mEq/L (3.5-5.1); SODIUM SERUM 141 mEq/L (136-145)
[2018-02-18] MEDS: metroNIDAZOLE 500mg/NS 100mL 500 MG/100 ML BAG IV SCH (05:53)
[2018-02-18] MEDS: Albuterol Nebulizer 2.5mg/3mL HHN SCH ×4 (06:45→19:13)
--- NOTE | 2018-02-18 08:30 | Diagnostic Imaging Report ---
CHEST X-RAY: AP view INDICATION: NG tube placement COMPARISON: None FINDINGS: NG tube is seen with tip in the stomach. Generalized gaseous distended loops of bowel are noted. A right nephroureteral stent is partially visualized. Increased interstitial lung markings are seen with thickening of the minor fissure. Heart size is normal. No effusions. IMPRESSION: NG tube within the stomach. Generalized gas-filled loops of bowel which may represent an ileus. Increased interstitial lung markings, nonspecific.
[2018-02-18] MEDS: Calcium Carb/Vit D 500 mg/200 U Tab PO SCH ×2 (08:38→16:47)
[2018-02-18] MEDS: Lactobacillus Rhamnosus GG 15 Billion CFU CAP.SPRINK PO SCH (08:38)
[2018-02-18] MEDS: Multivitamin w/ Minerals Tab PO SCH (08:39)
[2018-02-18] MEDS: Vitamin A/Vitamin D 5 gm Packet TP SCH ×2 (08:39→16:47)
[2018-02-18] MEDS ORDERED: Lidocaine 2% Gel 5 mL TP ONE (08:40)
[2018-02-18] MEDS ORDERED: Propofol 10 mg/mL 20mL Vial **SURGERY USE ONLY IV ONE (08:40)
[2018-02-18] MEDS ORDERED: Potassium Chloride 20 mEq ER Tab PO ONE (12:20)
--- NOTE | 2018-02-18 12:21 | Internal Medicine Prog Note ---
Internal Medicine Subjective - Subjective Service Date: 02/18/18 Patient seen and examined:: without staff Patient is:: awake, non-verbal Per staff patient has:: no adverse event Internal Medicine Objective - Results Result Diagrams: 02/18/18 04:50 02/18/18 04:50 Recent Labs: Laboratory Last Values WBC 8.5 Th/cmm (4.8-10.8) 02/18/18 04:50 RBC 4.12 Mil/cmm (4.30-5.70) L 02/18/18 04:50 Hgb 13.5 gm/dL (12-16) 02/18/18 04:50 Hct 39.7 % (41.0-60) L 02/18/18 04:50 MCV 96.4 fl (80-99) 02/18/18 04:50 MCH 32.9 pg (26.0-30.0) H 02/18/18 04:50 MCHC Differential 34.1 pg (28.0-36.0) 02/18/18 04:50 RDW 11.5 % (11.5-20.0) 02/18/18 04:50 Plt Count 269 Th/cmm (150-400) 02/18/18 04:50 MPV 7.5 fl 02/18/18 04:50 Add Manual Diff YES 02/14/18 19:00 Neutrophils % 56.9 % (40.0-80.0) 02/18/18 04:50 Band Neutrophils % 5 % (0-10) 02/14/18 19:00 Lymphocytes % 30.8 % (20.0-50.0) 02/18/18 04:50 Monocytes % 8.9 % (2.0-10.0) 02/18/18 04:50 Eosinophils % 2.7 % (0.0-5.0) 02/18/18 04:50 Basophils % 0.7 % (0.0-2.0) 02/18/18 04:50 Neutrophils (Manual) 82 % (40-80) H 02/14/18 19:00 Lymphocytes 8 % (20-50) L 02/14/18 19:00 Monocytes 5 % (2-10) 02/14/18 19:00 Eosinophils 0 % (0-5) 02/14/18 19:00 Basophils 0 % (0-3) 02/14/18 19:00 Platelet Estimate ADEQUATE (NORMAL) 02/14/18 19:00 PT 12.5 SECONDS (9.5-11.5) H 02/18/18 04:50 INR 1.19 (0.5-1.4) 02/18/18 04:50 Sodium 141 mEq/L (136-145) 02/18/18 04:50 Potassium 3.3 mEq/L (3.5-5.1) L 02/18/18 04:50 Chloride 108 mEq/L (98-107) H 02/18/18 04:50 Carbon Dioxide 25.4 mEq/L (21.0-31.0) 02/18/18 04:50 Anion Gap 10.9 (7.0-16.0) 02/18/18 04:50 BUN 7 mg/dL (7-25) 02/18/18 04:50 Creatinine 0.5 mg/dL (0.7-1.3) L 02/18/18 04:50 Est GFR ( Amer) > 60.0 ml/min (>90) 02/18/18 04:50 Est GFR (Non-Af Amer) > 60.0 ml/min 02/18/18 04:50 BUN/Creatinine Ratio 14.0 02/18/18 04:50 Glucose 105 mg/dL (70-105) 02/18/18 04:50 Whole Bld Lactic Acid 1.53 mmol/L (0.60-1.99) 02/14/18 19:40 Calcium 8.0 mg/dL (8.6-10.3) L 02/18/18 04:50 Magnesium 3.3 mg/dL (1.9-2.7) H 02/14/18 19:00 Total Bilirubin 0.7 mg/dL (0.3-1.0) 02/15/18 06:15 AST 14 U/L (13-39) 02/15/18 06:15 ALT 7 U/L (7-52) 02/15/18 06:15 Alkaline Phosphatase 53 U/L (34-104) 02/15/18 06:15 B-Natriuretic Peptide 31.7 pg/mL (5.0-100.0) 02/15/18 06:15 Total Protein 6.8 gm/dL (6.0-8.3) 02/15/18 06:15 Albumin 4.0 gm/dL (4.2-5.5) L 02/15/18 06:15 Globulin 2.8 gm/dL 02/15/18 06:15 Albumin/Globulin Ratio 1.4 (1.0-1.8) 02/15/18 06:15 Lipase 18 U/L (11-82) 02/14/18 19:00 TSH 1.01 uIU/ml (0.34-5.60) 02/15/18 06:15 Urine Source CATH 02/15/18 02:30 Urine Color ORANGE 02/15/18 02:30 Urine Clarity CLOUDY (CLEAR) 02/15/18 02:30 Urine pH 5.5 (4.6 - 8.0) 02/15/18 02:30 Ur Specific [place] >= 1.030 (1.005-1.030) 02/15/18 02:30 Urine Protein 100 mg/dL (NEGATIVE) H 02/15/18 02:30 Urine Glucose (UA) NEGATIVE mg/dL (NEGATIVE) 02/15/18 02:30 Urine Ketones TRACE mg/dL (NEGATIVE) 02/15/18 02:30 Urine Blood LARGE (NEGATIVE) H 02/15/18 02:30 Urine Nitrate POSITIVE (NEGATIVE) H 02/15/18 02:30 Urine Bilirubin MODERATE (NEGATIVE) H 02/15/18 02:30 Urine Urobilinogen 2.0 E.U./dL (0.2 - 1.0) 02/15/18 02:30 Ur Leukocyte Esterase MODERATE (NEGATIVE) H 02/15/18 02:30 Urine RBC 2-5 /hpf (0-5) H 02/15/18 02:30 Urine WBC 50-100 /hpf (0-5) H 02/15/18 02:30 Ur Epithelial Cells FEW /lpf (FEW) 02/15/18 02:30 Urine Bacteria MANY /hpf (NONE SEEN) H 02/15/18 02:30 - Physical Exam Vitals and I&O: Vital Signs Temp 97.6 F 02/18/18 12:02 Pulse 68 02/18/18 12:02 Resp 18 02/18/18 12:02 BP 101/68 02/18/18 12:02 Pulse Ox 96 02/18/18 12:02 Intake & Output 02/17/18 02/18/18 02/18/18 18:59 06:59 18:59 Intake Total 100 1300 Balance 100 1300 Weight (lbs) 86 lb Intake: Intake, IV Amount 100 1300 D5-0.45NS 1,000 ml @ 80 1000 mls/hr IV .[id number] [facility] Rx #:[id number] Meropenem 1 gm In Sodium 200 Chloride 0.9% 100 ml @ 100 mls/hr IV Q12H [facility] Rx #:[id number] metroNIDAZOLE 500mg/NS 100 100 100mL 500 mg In 100 ml @ 100 mls/hr IV Q8HR [facility] Rx #:[id number] Other: # Voids 3 # Bowel Movements 6 Stool Characteristics Liquid Liquid Liquid Weight Source Bedscale Active Medications: Current Medications Acetaminophen (Tylenol) 650 mg PO Q4HR PRN PRN Reason: PAIN OR TEMP >99.9 Stop: 04/15/18 22:17 Last Admin: 02/17/18 04:15 Dose: 650 mg Albuterol Sulfate (Albuterol 2.5mg/3ml Neb Ud) 2.5 mg HHN QIDRT [facility] Stop: 04/16/18 06:59 Last Admin: 02/18/18 11:10 Dose: 2.5 mg Betamethasone Dipropionate (Betamethasone Dip 0.05% Cream) 1 appl TP BID [facility] Stop: 04/16/18 08:59 Last Admin: 02/17/18 16:59 Dose: 1 appl Calcium/Vitamin D (Oscal W/Vitamin D) 1 tab PO BID [facility] Stop: 04/16/18 08:59 Last Admin: 02/18/18 08:38 Dose: Not Given Heparin Sodium (Porcine) (Heparin) 5,000 units SUBQ Q12HR [facility] Stop: 04/16/18 08:59 Last Admin: 02/18/18 08:38 Dose: Not Given Metronidazole (Flagyl) 500 mg in 100 mls @ 100 mls/hr IV Q8HR [facility] Stop: 04/16/18 04:59 Last Admin: 02/18/18 05:53 Dose: 100 mls/hr Dextrose/Sodium Chloride (D5-0.45ns) 1,000 mls @ 80 mls/hr IV .[id number] [facility] Stop: 04/16/18 12:59 Last Admin: 02/18/18 02:07 Dose: 80 mls/hr Meropenem 1 gm/ Sodium (Chloride) 100 mls @ 100 mls/hr IV Q12H [facility] Stop: 04/18/18 15:59 Last Infusion: 02/18/18 05:53 Dose: Infused Lactobacillus Rhamnosus (Culturelle 15b) 1 each PO DAILY [facility] Stop: 04/17/18 08:59 Last Admin: 02/18/18 08:38 Dose: Not Given Loperamide HCl (Imodium) 4 mg PO Q4HR PRN PRN Reason: Diarrhea Stop: 04/16/18 16:30 Magnesium Hydroxide (Milk Of Magnesia) 30 ml PO Q72HR PRN PRN Reason: MILD CONSTIPATION Stop: 04/15/18 22:17 Midodrine (Proamatine) 5 mg PO TID [facility] Stop: 04/17/18 08:59 Last Admin: 02/18/18 08:38 Dose: Not Given Miscellaneous (Vte Chemical Prophylaxis Screen/ Admission) 1 [facility] PRN PRN PRN Reason: PROTOCOL Stop: 04/16/18 09:33 Miscellaneous (Probiotic Screen) 1 [facility] PRN PRN PRN Reason: PROTOCOL Stop: 04/16/18 13:45 Ondansetron HCl (Zofran) 4 mg IV Q8H PRN PRN Reason: Nausea / Vomiting Stop: 04/15/18 22:21 Last Admin: 02/18/18 00:29 Dose: 4 mg Pantoprazole Sodium (Protonix) 40 mg IVP BID [facility] Stop: 04/16/18 08:59 Last Admin: 02/18/18 08:39 Dose: Not Given Potassium Chloride (Klor-Con) 20 meq PO X1 ONE Stop: 02/18/18 12:21 Sodium Phosphate (Fleet Enema) 135 ml RC Q96H PRN PRN Reason: SEVERE CONSTIPATION Stop: 04/15/18 22:17 Vitamin A (Vitamin A & D) 5 gm TP BID [facility] Stop: 04/16/18 08:59 Last Admin: 02/18/18 08:39 Dose: Not Given General: alert HEENT: NC/AT, PERRLA Neck: Supple Lungs: CTAB Cardiovascular: RRR, Normal S1, without murmur Abdomen: soft, non-tender, non-distended, positive bowel sound Internal Medicine Assmt/Plan - Assessment Assessment: acute uti with esbl e.coli urine intractable vomiting-resolved diarrhea-resolved leukocytosis-improved acute renal insufficiency r/o acute dehydration cerebral palsy mitral regurgitation osteoporosis - Plan Plan: continue ivf for hydration iv antibiotic to continue follow up labs in am continue current plan of care Nutritional Asmnt/Malnutr-PDOC - Dietary Evaluation Malnutrition Findings (Please click <Entered> for more info): Nutritional Asmnt/Malnutrition Start: 02/15/18 15: 34 Text: Status: Complete Freq: Protocol: Document 02/15/18 15:36 LCHENG (Rec: 02/15/18 16:11 HENG [email or web address]) Nutritional Asmnt/Malnutrition Patient General Information Nutritional Screening High Risk Diagnosis gastroenteritis, dehydration Pertinent Medical Hx/Surgical Hx arthritis, CP, mental retardation, osteoporosis Subjective Information Pt seen lying in bed at time of visit, non-verbal. Per nurse note, pt had several liquid stool today, sent for C diff test, no vomiting noted. Current Diet Order/ Nutrition Support NPO Pertinent Medications oscal w/vit D, D5-0.45ns, culturelle, levaquin, protonix , zofran, Christina&D Pertinent Labs 02/15 Cl 111, BUN 36, Glucose 122 Nutritional Hx/Data Height 5 ft Height (Calculated Centimeters) 152.4 Current Weight (lbs) 86 lb Weight (Calculated Kilograms) 39.0 Weight (Calculated Grams) 23004.9 [place] Body Weight 106 Body Mass Index (BMI) 16.7 Weight Status Underweight GI Symptoms GI Symptoms Diarrhea Last BM 02/15 Skin Integrity/Comment: discoloration on buttocks, right and left buttocks blanchable redness Estimated Nutritional Goals BEE in Kcals: Using Current wt Calories/Kcals/Kg 30-35 Kcals Calculated 0472-0122 Protein: Using Current wt Protein g/k.2-1.4 Protein Calculated 48-56 Fluid: ml 1200-1400ml (1ml/kcal) Nutritional Problem 1. Problem Problem inadequate food intake Etiology diarrhea Signs/Symptoms: pt on NPO Malnutrition Alert Is there a minimum of two criteria No selected? Query Text:Check all the applicable criteria. A minimum of two criteria are recommended for diagnosis of either severe or non-severe malnutrition. Malnutrition Related to Morbid Obesity Malnutrition related to morbid obesity No Intervention/Recommendation Comments 1. Monitor NPO status. Start with clear liquid diet as tolerated if medically appropriate. 2. Monitor GI function, wt, labs and skin integrity 3. F/U as high risk in 2-3 days, 02/17-02/18 Expected Outcomes/Goals Expected Outcomes/Goals 1. PO intake to meet at least 75% of nutritional needs. 2. Wt stability, GI function to improve, skin to remain intact, labs to approach WNL.
--- NOTE | 2018-02-18 12:30 | Operative Report ---
DATE OF SURGERY: 02/18/2018 INPATIENT GI COLONOSCOPY REPORT PROCEDURE PERFORMED: Colonoscopy with biopsy. ENDOSCOPIST: Tony Valentine M.D. PREOPERATIVE DIAGNOSES: Change in bowel habits, diarrhea. POSTOPERATIVE DIAGNOSIS: Left-sided colitis likely constipation-induced and internal hemorrhoids. INDICATION: The patient is a 62-year-old male with cerebral palsy who is nonverbal, who is noted to have diarrheal symptoms and fecal impaction. He has never before had colonoscopy and thus is here for this exam. CONSENT: Informed consent was obtained from the patient's brother. The risks and benefits of the procedure were discussed include but not limited to infection, bleeding, perforation, need for surgery, cardiopulmonary complications, missed pathology and . The patient's brother indicated his understanding of these risks and wished to go forward with the procedure and signed a consent form. ANESTHESIA: This procedure was performed in the main operating room with the care of the general anesthesiologist providing anesthesia. PROCEDURE IN DETAIL: The patient was secured to appropriate monitoring devices including blood pressure, pulse and pulse oximetry. IV was in place. General anesthesia was administered by the general anesthesiologist. DESCRIPTION OF PROCEDURE: The patient was in the left lateral decubitus position and rectal exam was then performed and colonoscope was introduced into the anus under direct visualization into the level of the cecum, which was confirmed by the presence of appendiceal orifice and IC valve, which were photographed. The scope was then slowly and carefully withdrawn, being sure to examine the entire mucosal surface in a careful and systematic fashion. Retroflexion was performed in the rectum prior to scope straightening and withdrawal from the body. No obvious complication was observed at the end of the procedure. FINDINGS: The [place] ____ score is 1 in the rectum and 2 in the mid colon, 3 in the left colon. There were no polyps found on this examination, although the quality of the bowel preparation in the rectum area was rather poor and polyps less than 1 cm in size may have been missed in that area. There were no mass lesions found on this examination. Random colon biopsies were taken to look for any evidence of microscopic colitis. Starting at 30 cm and extending to 10 cm, there was an area of colitis as evidenced by cobblestoning of the mucosa, erythema, and loss of vascular pattern. This appeared to be possibly induced by fecal impaction and biopsies were taken from this area. There is no obvious mass lesion here. On retroflexed view in the rectum, there were some moderately sized internal hemorrhoids. IMPRESSION: Colitis at 30 cm likely from fecal impaction, status post biopsies. RECOMMENDATIONS: 1. Advise the patient be kept on laxative therapy to avoid fecal impaction going forward. This likely help with healing of his colitis as well. 2. We will follow up the colon random biopsy and the biopsy from the colitis section. 3. The next colonoscopy for screening purposes would be due in 3 years given the marginal bowel preparation. 4. We will restart the patient's diet and advance this as tolerated. Thank you for allowing me to participate in this patient's care. We will continue to follow. JOB# [id number]
[2018-02-19] MEDS: Meropenem 1 GM in Sodium Chloride 0.9% 100 ML IV SCH (03:43)
[2018-02-19 05:04] LABS: % BASOPHILS 0.4 % (0.0-2.0); % EOSINOPHILS 2.8 % (0.0-5.0); % LYMPHOCYTES 27.6 % (20.0-50.0); % MONOCYTES 7.1 % (2.0-10.0); % NEUTROPHILS 62.1 % (40.0-80.0); EOSINOPHILE ABSOLUTE 0.2 Th/cmm (0.1-0.4); HEMOGLOBIN 13.2 gm/dL (12-16); LYMPHOCYTE ABSOLUTE 2.3 Th/cmm (1.5-3.0); MEAN CELL VOLUME 97.7 fl (80-99); MEAN CORPUSCULAR HEMOGLOBIN 33.1 pg (26.0-30.0); MEAN CORPUSCULAR HGB CONC 33.9 pg (28.0-36.0); MEAN PLATELET VOLUME 7.7 fl; MONOCYTE ABSOLUTE 0.6 Th/cmm (0.3-1.0); NEUTROPHILE ABSOLUTE 5.1 Th/cmm (1.8-8.0); PLATELET COUNT 255 Th/cmm (150-400); RED BLOOD COUNT 3.99 Mil/cmm (4.30-5.70); RED CELL DISTRIBUTION WIDTH 11.6 % (11.5-20.0); WHITE BLOOD COUNT 8.2 Th/cmm (4.8-10.8)
[2018-02-19 05:20] LABS: ANION GAP 7.7 (7.0-16.0); BUN - UREA NITROGEN 4 mg/dL (7-25); CARBON DIOXIDE 27.1 mEq/L (21.0-31.0); CHLORIDE 106 mEq/L (98-107); CREATININE - SERUM 0.6 mg/dL (0.7-1.3); GFR AFRICAN-AMERICAN > 60.0 ml/min (>90); GFR NON AFRICAN-AMERICAN > 60.0 ml/min; GLUCOSE 128 mg/dL (70-105); MAGNESIUM 1.5 mg/dL (1.9-2.7); SODIUM SERUM 138 mEq/L (136-145)
[2018-02-19 05:41] LABS: POTASSIUM SERUM 2.8 mEq/L (3.5-5.1)
[2018-02-19] MEDS: D5-0.45NS 1,000 ML IV SCH (06:19)
[2018-02-19] MEDS: Albuterol Nebulizer 2.5mg/3mL HHN SCH ×3 (07:22→15:55)
[2018-02-19] MEDS: Multivitamin w/ Minerals Tab PO SCH (09:01)
[2018-02-19] MEDS: Vitamin A/Vitamin D 5 gm Packet TP SCH ×2 (09:01→16:33)
[2018-02-19] MEDS: Lactobacillus Rhamnosus GG 15 Billion CFU CAP.SPRINK PO SCH (09:01)
[2018-02-19] MEDS: Calcium Carb/Vit D 500 mg/200 U Tab PO SCH ×2 (09:01→16:33)
--- NOTE | 2018-02-19 09:09 | GI Progress Note ---
Subjective - Review of Systems Service Date: 02/19/18 Subjective: Ate breakfast, no overnight events Objective - Results Result Diagrams: 02/19/18 04:35 02/19/18 04:35 Recent Labs: Laboratory Last Values WBC 8.2 Th/cmm (4.8-10.8) 02/19/18 04:35 RBC 3.99 Mil/cmm (4.30-5.70) L 02/19/18 04:35 Hgb 13.2 gm/dL (12-16) 02/19/18 04:35 Hct 39.0 % (41.0-60) L 02/19/18 04:35 MCV 97.7 fl (80-99) 02/19/18 04:35 MCH 33.1 pg (26.0-30.0) H 02/19/18 04:35 MCHC Differential 33.9 pg (28.0-36.0) 02/19/18 04:35 RDW 11.6 % (11.5-20.0) 02/19/18 04:35 Plt Count 255 Th/cmm (150-400) 02/19/18 04:35 MPV 7.7 fl 02/19/18 04:35 Add Manual Diff YES 02/14/18 19:00 Neutrophils % 62.1 % (40.0-80.0) 02/19/18 04:35 Band Neutrophils % 5 % (0-10) 02/14/18 19:00 Lymphocytes % 27.6 % (20.0-50.0) 02/19/18 04:35 Monocytes % 7.1 % (2.0-10.0) 02/19/18 04:35 Eosinophils % 2.8 % (0.0-5.0) 02/19/18 04:35 Basophils % 0.4 % (0.0-2.0) 02/19/18 04:35 Neutrophils (Manual) 82 % (40-80) H 02/14/18 19:00 Lymphocytes 8 % (20-50) L 02/14/18 19:00 Monocytes 5 % (2-10) 02/14/18 19:00 Eosinophils 0 % (0-5) 02/14/18 19:00 Basophils 0 % (0-3) 02/14/18 19:00 Platelet Estimate ADEQUATE (NORMAL) 02/14/18 19:00 PT 12.5 SECONDS (9.5-11.5) H 02/18/18 04:50 INR 1.19 (0.5-1.4) 02/18/18 04:50 Sodium 138 mEq/L (136-145) 02/19/18 04:35 Potassium 2.8 mEq/L (3.5-5.1) L* 02/19/18 04:35 Chloride 106 mEq/L (98-107) 02/19/18 04:35 Carbon Dioxide 27.1 mEq/L (21.0-31.0) 02/19/18 04:35 Anion Gap 7.7 (7.0-16.0) 02/19/18 04:35 BUN 4 mg/dL (7-25) L 02/19/18 04:35 Creatinine 0.6 mg/dL (0.7-1.3) L 02/19/18 04:35 Est GFR ( Amer) > 60.0 ml/min (>90) 02/19/18 04:35 Est GFR (Non-Af Amer) > 60.0 ml/min 02/19/18 04:35 BUN/Creatinine Ratio 6.7 02/19/18 04:35 Glucose 128 mg/dL (70-105) H 02/19/18 04:35 Whole Bld Lactic Acid 1.53 mmol/L (0.60-1.99) 02/14/18 19:40 Calcium 8.0 mg/dL (8.6-10.3) L 02/19/18 04:35 Magnesium 1.5 mg/dL (1.9-2.7) L 02/19/18 04:35 Total Bilirubin 0.7 mg/dL (0.3-1.0) 02/15/18 06:15 AST 14 U/L (13-39) 02/15/18 06:15 ALT 7 U/L (7-52) 02/15/18 06:15 Alkaline Phosphatase 53 U/L (34-104) 02/15/18 06:15 B-Natriuretic Peptide 31.7 pg/mL (5.0-100.0) 02/15/18 06:15 Total Protein 6.8 gm/dL (6.0-8.3) 02/15/18 06:15 Albumin 4.0 gm/dL (4.2-5.5) L 02/15/18 06:15 Globulin 2.8 gm/dL 02/15/18 06:15 Albumin/Globulin Ratio 1.4 (1.0-1.8) 02/15/18 06:15 Lipase 18 U/L (11-82) 02/14/18 19:00 TSH 1.01 uIU/ml (0.34-5.60) 02/15/18 06:15 Urine Source CATH 02/15/18 02:30 Urine Color ORANGE 02/15/18 02:30 Urine Clarity CLOUDY (CLEAR) 02/15/18 02:30 Urine pH 5.5 (4.6 - 8.0) 02/15/18 02:30 Ur Specific [place] >= 1.030 (1.005-1.030) 02/15/18 02:30 Urine Protein 100 mg/dL (NEGATIVE) H 02/15/18 02:30 Urine Glucose (UA) NEGATIVE mg/dL (NEGATIVE) 02/15/18 02:30 Urine Ketones TRACE mg/dL (NEGATIVE) 02/15/18 02:30 Urine Blood LARGE (NEGATIVE) H 02/15/18 02:30 Urine Nitrate POSITIVE (NEGATIVE) H 02/15/18 02:30 Urine Bilirubin MODERATE (NEGATIVE) H 02/15/18 02:30 Urine Urobilinogen 2.0 E.U./dL (0.2 - 1.0) 02/15/18 02:30 Ur Leukocyte Esterase MODERATE (NEGATIVE) H 02/15/18 02:30 Urine RBC 2-5 /hpf (0-5) H 02/15/18 02:30 Urine WBC 50-100 /hpf (0-5) H 02/15/18 02:30 Ur Epithelial Cells FEW /lpf (FEW) 02/15/18 02:30 Urine Bacteria MANY /hpf (NONE SEEN) H 02/15/18 02:30 - Physical Exam Vitals and I&O: Vital Signs Temp 97.2 F 02/19/18 08:03 Pulse 70 02/19/18 08:03 Resp 18 02/19/18 08:03 BP 113/70 02/19/18 08:03 Pulse Ox 94 02/19/18 08:03 Intake & Output 02/18/18 02/19/18 02/19/18 18:59 06:59 18:59 Intake Total 1101.333 998.667 Balance 1101.333 998.667 Weight (lbs) 39.009 kg Intake: Intake, IV Amount 1101.333 998.667 D5-0.45NS 1,000 ml @ 80 1001.333 998.667 mls/hr IV .[id number] [facility] Rx #:[id number] Meropenem 1 gm In Sodium 100 Chloride 0.9% 100 ml @ 100 mls/hr IV Q12H [facility] Rx #:[id number] Other: # Voids 3 # Bowel Movements 1 Stool Characteristics Liquid Liquid Weight Source Bedscale Active Medications: Current Medications Acetaminophen (Tylenol) 650 mg PO Q4HR PRN PRN Reason: PAIN OR TEMP >99.9 Stop: 04/15/18 22:17 Last Admin: 02/17/18 04:15 Dose: 650 mg Albuterol Sulfate (Albuterol 2.5mg/3ml Neb Ud) 2.5 mg HHN QIDRT [facility] Stop: 04/16/18 06:59 Last Admin: 02/19/18 07:22 Dose: 2.5 mg Betamethasone Dipropionate (Betamethasone Dip 0.05% Cream) 1 appl TP BID [facility] Stop: 04/16/18 08:59 Last Admin: 02/18/18 16:46 Dose: Not Given Calcium/Vitamin D (Oscal W/Vitamin D) 1 tab PO BID [facility] Stop: 04/16/18 08:59 Last Admin: 02/18/18 16:47 Dose: 1 tab Heparin Sodium (Porcine) (Heparin) 5,000 units SUBQ Q12HR [facility] Stop: 04/16/18 08:59 Last Admin: 02/18/18 20:11 Dose: 5,000 units Dextrose/Sodium Chloride (D5-0.45ns) 1,000 mls @ 80 mls/hr IV .[id number] [facility] Stop: 04/16/18 12:59 Last Admin: 02/19/18 06:19 Dose: 80 mls/hr Meropenem 1 gm/ Sodium (Chloride) 100 mls @ 100 mls/hr IV Q12H [facility] Stop: 04/18/18 15:59 Last Admin: 02/19/18 03:43 Dose: 100 mls/hr Lactobacillus Rhamnosus (Culturelle 15b) 1 each PO DAILY [facility] Stop: 04/17/18 08:59 Last Admin: 02/18/18 08:38 Dose: Not Given Loperamide HCl (Imodium) 4 mg PO Q4HR PRN PRN Reason: Diarrhea Stop: 04/16/18 16:30 Magnesium Hydroxide (Milk Of Magnesia) 30 ml PO Q72HR PRN PRN Reason: MILD CONSTIPATION Stop: 04/15/18 22:17 Metronidazole (Flagyl) 250 mg PO TID [facility] Stop: 04/19/18 13:59 Last Admin: 02/18/18 20:11 Dose: 250 mg Midodrine (Proamatine) 5 mg PO TID [facility] Stop: 04/17/18 08:59 Last Admin: 02/18/18 20:11 Dose: 5 mg Miscellaneous (Vte Chemical Prophylaxis Screen/ Admission) 1 ea PRN PRN PRN Reason: PROTOCOL Stop: 04/16/18 09:33 Miscellaneous (Probiotic Screen) 1 [facility] PRN PRN PRN Reason: PROTOCOL Stop: 04/16/18 13:45 Ondansetron HCl (Zofran) 4 mg IV Q8H PRN PRN Reason: Nausea / Vomiting Stop: 04/15/18 22:21 Last Admin: 02/18/18 00:29 Dose: 4 mg Pantoprazole Sodium (Protonix) 40 mg IVP BID [facility] Stop: 04/16/18 08:59 Last Admin: 02/18/18 16:47 Dose: 40 mg Sodium Phosphate (Fleet Enema) 135 ml RC Q96H PRN PRN Reason: SEVERE CONSTIPATION Stop: 04/15/18 22:17 Vitamin A (Vitamin A & D) 5 gm TP BID [facility] Stop: 04/16/18 08:59 Last Admin: 02/18/18 16:47 Dose: 5 gm General: Alert HEENT: Atraumatic Abdomen: Soft, no Tender, no Hepatomegaly, no Mass, no Guarding, no Obese - Procedures Procedures: Procedures Procedure Code Date EXCISION OF LARGE INTESTINE, ENDO, DIAGN [id number] 02/14/18 Assessment/Plan - Problem List Patient Problems: All Active Problems NAUSEA/VOMITING AND DIARRHEA (Acute) - Assessment Assessment: # Diarrhea # Cerebral palsey # Change bowel habits Colonoscopy on 02/18 showed left sided colitis, likely from fecal impaction that has now resolved. Biopsies were taken and are pending Plan: - cont regular use of laxatives and/or enemas to prevent impaction recurrence - cont with po diet as tolerated - f/u biopsy results - surveillance colonoscopy due in 5 years given marginal bowel prep
[2018-02-19] MEDS ORDERED: Mag Sulfate 2gm/50mL Premix 2 GM/50 ML BAG IV ONE (09:46)
[2018-02-19] MEDS: KCL 20mEq/100mL Premix 20 MEQ/100 ML PIGGYBACK IV SCH ×2 (11:43→14:27)
--- NOTE | 2018-02-19 14:50 | Pathology Report ---
[id number] Collection Date: 02/18/2018 Surgeon: Dr. Triston Valentine Specimen Description: 1. Random colon biopsy 2. Biopsy of colitis at 35 cm Gross Description: Part I: Received in formalin are three chavez soft tissue fragments, measuring 0.1 cm in greatest dimension. Totally submitted in one cassette labeled A1. Gross Description: Part II: Received in formalin are three chavez soft tissue fragments, measuring 0.1 cm in greatest dimension. Totally submitted in one cassette labeled B. Microscopic Description: Part I: The histologic sections show benign colon mucosa with mild chronic inflammation present, consisting of slightly increased numbers of lymphocytes and plasma cells. There is no evidence for ulceration and no evidence for atypia. The number of intraepithelial inflammatory cells does not appear to be significantly increased (involving less than 15% of the glandular epithelial cells). Diagnosis: Part I: 1. Mild nonspecific chronic inflammation, random colon biopsy. 2. There is no evidence for microscopic colitis. Microscopic Description: Part II: The histologic sections show benign colon mucosa with acute and chronic inflammation present, consisting of increased numbers of neutrophils admixed with lymphocytes and plasma cells. There is a focal area of superficial mucosal ulceration and associated inflammatory changes. There is no evidence for atypia. Diagnosis: Part II: 1. Mild acute and chronic inflammation consistent with colitis (colon biopsy at 35 cm). 2. There is a focal area of superficial mucosal ulceration and associated inflammatory changes. Comment: There is no evidence for malignancy. [facility]# [id number] [facility]
--- NOTE | 2018-02-19 15:13 | Internal Medicine Prog Note ---
Internal Medicine Subjective - Subjective Service Date: 02/19/18 Patient is:: awake, non-verbal Per staff patient has:: no adverse event Internal Medicine Objective - Results Result Diagrams: 02/19/18 04:35 02/19/18 04:35 Recent Labs: Laboratory Last Values WBC 8.2 Th/cmm (4.8-10.8) 02/19/18 04:35 RBC 3.99 Mil/cmm (4.30-5.70) L 02/19/18 04:35 Hgb 13.2 gm/dL (12-16) 02/19/18 04:35 Hct 39.0 % (41.0-60) L 02/19/18 04:35 MCV 97.7 fl (80-99) 02/19/18 04:35 MCH 33.1 pg (26.0-30.0) H 02/19/18 04:35 MCHC Differential 33.9 pg (28.0-36.0) 02/19/18 04:35 RDW 11.6 % (11.5-20.0) 02/19/18 04:35 Plt Count 255 Th/cmm (150-400) 02/19/18 04:35 MPV 7.7 fl 02/19/18 04:35 Add Manual Diff YES 02/14/18 19:00 Neutrophils % 62.1 % (40.0-80.0) 02/19/18 04:35 Band Neutrophils % 5 % (0-10) 02/14/18 19:00 Lymphocytes % 27.6 % (20.0-50.0) 02/19/18 04:35 Monocytes % 7.1 % (2.0-10.0) 02/19/18 04:35 Eosinophils % 2.8 % (0.0-5.0) 02/19/18 04:35 Basophils % 0.4 % (0.0-2.0) 02/19/18 04:35 Neutrophils (Manual) 82 % (40-80) H 02/14/18 19:00 Lymphocytes 8 % (20-50) L 02/14/18 19:00 Monocytes 5 % (2-10) 02/14/18 19:00 Eosinophils 0 % (0-5) 02/14/18 19:00 Basophils 0 % (0-3) 02/14/18 19:00 Platelet Estimate ADEQUATE (NORMAL) 02/14/18 19:00 PT 12.5 SECONDS (9.5-11.5) H 02/18/18 04:50 INR 1.19 (0.5-1.4) 02/18/18 04:50 Sodium 138 mEq/L (136-145) 02/19/18 04:35 Potassium 2.8 mEq/L (3.5-5.1) L* 02/19/18 04:35 Chloride 106 mEq/L (98-107) 02/19/18 04:35 Carbon Dioxide 27.1 mEq/L (21.0-31.0) 02/19/18 04:35 Anion Gap 7.7 (7.0-16.0) 02/19/18 04:35 BUN 4 mg/dL (7-25) L 02/19/18 04:35 Creatinine 0.6 mg/dL (0.7-1.3) L 02/19/18 04:35 Est GFR ( Amer) > 60.0 ml/min (>90) 02/19/18 04:35 Est GFR (Non-Af Amer) > 60.0 ml/min 02/19/18 04:35 BUN/Creatinine Ratio 6.7 02/19/18 04:35 Glucose 128 mg/dL (70-105) H 02/19/18 04:35 Whole Bld Lactic Acid 1.53 mmol/L (0.60-1.99) 02/14/18 19:40 Calcium 8.0 mg/dL (8.6-10.3) L 02/19/18 04:35 Magnesium 1.5 mg/dL (1.9-2.7) L 02/19/18 04:35 Total Bilirubin 0.7 mg/dL (0.3-1.0) 02/15/18 06:15 AST 14 U/L (13-39) 02/15/18 06:15 ALT 7 U/L (7-52) 02/15/18 06:15 Alkaline Phosphatase 53 U/L (34-104) 02/15/18 06:15 B-Natriuretic Peptide 31.7 pg/mL (5.0-100.0) 02/15/18 06:15 Total Protein 6.8 gm/dL (6.0-8.3) 02/15/18 06:15 Albumin 4.0 gm/dL (4.2-5.5) L 02/15/18 06:15 Globulin 2.8 gm/dL 02/15/18 06:15 Albumin/Globulin Ratio 1.4 (1.0-1.8) 02/15/18 06:15 Lipase 18 U/L (11-82) 02/14/18 19:00 TSH 1.01 uIU/ml (0.34-5.60) 02/15/18 06:15 Urine Source CATH 02/15/18 02:30 Urine Color ORANGE 02/15/18 02:30 Urine Clarity CLOUDY (CLEAR) 02/15/18 02:30 Urine pH 5.5 (4.6 - 8.0) 02/15/18 02:30 Ur Specific [place] >= 1.030 (1.005-1.030) 02/15/18 02:30 Urine Protein 100 mg/dL (NEGATIVE) H 02/15/18 02:30 Urine Glucose (UA) NEGATIVE mg/dL (NEGATIVE) 02/15/18 02:30 Urine Ketones TRACE mg/dL (NEGATIVE) 02/15/18 02:30 Urine Blood LARGE (NEGATIVE) H 02/15/18 02:30 Urine Nitrate POSITIVE (NEGATIVE) H 02/15/18 02:30 Urine Bilirubin MODERATE (NEGATIVE) H 02/15/18 02:30 Urine Urobilinogen 2.0 E.U./dL (0.2 - 1.0) 02/15/18 02:30 Ur Leukocyte Esterase MODERATE (NEGATIVE) H 02/15/18 02:30 Urine RBC 2-5 /hpf (0-5) H 02/15/18 02:30 Urine WBC 50-100 /hpf (0-5) H 02/15/18 02:30 Ur Epithelial Cells FEW /lpf (FEW) 02/15/18 02:30 Urine Bacteria MANY /hpf (NONE SEEN) H 02/15/18 02:30 - Physical Exam Vitals and I&O: Vital Signs Temp 98.1 F 02/19/18 11:53 Pulse 74 02/19/18 11:53 Resp 18 02/19/18 11:53 BP 130/76 02/19/18 11:53 Pulse Ox 97 02/19/18 11:53 Intake & Output 02/18/18 02/19/18 02/19/18 18:59 06:59 18:59 Intake Total 1101.333 998.667 100 Balance 1101.333 998.667 100 Weight (lbs) 86 lb Intake: Intake, IV Amount 1101.333 998.667 100 D5-0.45NS 1,000 ml @ 80 1001.333 998.667 mls/hr IV .[id number] [facility] Rx #:[id number] KCL 20mEq/100mL Premix 20 100 meq In 100 ml @ 50 mls/ hr IV Q2H [facility] Rx#: [id number] Meropenem 1 gm In Sodium 100 Chloride 0.9% 100 ml @ 100 mls/hr IV Q12H [facility] Rx #:[id number] Other: # Voids 3 # Bowel Movements 1 Stool Characteristics Liquid Liquid Soft Formed Weight Source Bedscale Active Medications: Current Medications Acetaminophen (Tylenol) 650 mg PO Q4HR PRN PRN Reason: PAIN OR TEMP >99.9 Stop: 04/15/18 22:17 Last Admin: 02/17/18 04:15 Dose: 650 mg Albuterol Sulfate (Albuterol 2.5mg/3ml Neb Ud) 2.5 mg HHN QIDRT [facility] Stop: 04/16/18 06:59 Last Admin: 02/19/18 11:02 Dose: 2.5 mg Betamethasone Dipropionate (Betamethasone Dip 0.05% Cream) 1 appl TP BID [facility] Stop: 04/16/18 08:59 Last Admin: 02/19/18 09:01 Dose: 1 appl Calcium/Vitamin D (Oscal W/Vitamin D) 1 tab PO BID [facility] Stop: 04/16/18 08:59 Last Admin: 02/19/18 09:01 Dose: 1 tab Lactobacillus Rhamnosus (Culturelle 15b) 1 each PO DAILY [facility] Stop: 04/17/18 08:59 Last Admin: 02/19/18 09:01 Dose: 1 each Loperamide HCl (Imodium) 4 mg PO Q4HR PRN PRN Reason: Diarrhea Stop: 04/16/18 16:30 Magnesium Hydroxide (Milk Of Magnesia) 30 ml PO Q72HR PRN PRN Reason: MILD CONSTIPATION Stop: 04/15/18 22:17 Metronidazole (Flagyl) 250 mg PO TID [facility] Stop: 04/19/18 13:59 Last Admin: 02/19/18 13:36 Dose: 250 mg Midodrine (Proamatine) 5 mg PO TID [facility] Stop: 04/17/18 08:59 Last Admin: 02/19/18 13:36 Dose: 5 mg Miscellaneous (Vte Chemical Prophylaxis Screen/ Admission) 1 ea PRN PRN PRN Reason: PROTOCOL Stop: 04/16/18 09:33 Miscellaneous (Probiotic Screen) 1 ea PRN PRN PRN Reason: PROTOCOL Stop: 04/16/18 13:45 Nitrofurantoin Macrocrystals (Macrobid) 100 mg PO BID [facility]; Protocol Stop: 02/26/18 16:59 Ondansetron HCl (Zofran) 4 mg IV Q8H PRN PRN Reason: Nausea / Vomiting Stop: 04/15/18 22:21 Last Admin: 02/18/18 00:29 Dose: 4 mg Pantoprazole Sodium (Protonix) 40 mg PO BID [facility] Stop: 04/20/18 16:59 Polyethylene Glycol (Miralax) 17 gm PO DAILY [facility] Stop: 04/21/18 08:59 Sodium Phosphate (Fleet Enema) 135 ml RC Q96H PRN PRN Reason: SEVERE CONSTIPATION Stop: 04/15/18 22:17 Vitamin A (Vitamin A & D) 5 gm TP BID [facility] Stop: 04/16/18 08:59 Last Admin: 02/19/18 09:01 Dose: 5 gm General: alert HEENT: NC/AT, PERRLA Neck: Supple Lungs: CTAB Cardiovascular: RRR, Normal S1, without murmur Abdomen: soft, non-tender, non-distended, positive bowel sound - Procedures Procedures: Procedures Procedure Code Date EXCISION OF LARGE INTESTINE, ENDO, DIAGN [id number] 02/14/18 Internal Medicine Assmt/Plan - Assessment Assessment: acute uti with esbl e.coli urine intractable vomiting-resolved diarrhea-resolved leukocytosis-improved acute renal insufficiency r/o acute dehydration cerebral palsy mitral regurgitation osteoporosis - Plan Plan: continue ivf for hydration iv antibiotic to continue follow up labs in am continue current plan of care Nutritional Asmnt/Malnutr-PDOC - Dietary Evaluation Malnutrition Findings (Please click <Entered> for more info): Nutritional Asmnt/Malnutrition Start: 02/15/18 15: 34 Text: Status: Complete Freq: Protocol: Document 02/15/18 15:36 ROBERTH (Rec: 02/15/18 16:11 ROBERTH [email or web address]) Nutritional Asmnt/Malnutrition Patient General Information Nutritional Screening High Risk Diagnosis gastroenteritis, dehydration Pertinent Medical Hx/Surgical Hx arthritis, CP, mental retardation, osteoporosis Subjective Information Pt seen lying in bed at time of visit, non-verbal. Per nurse note, pt had several liquid stool today, sent for C diff test, no vomiting noted. Current Diet Order/ Nutrition Support NPO Pertinent Medications oscal w/vit D, D5-0.45ns, culturelle, levaquin, protonix , zofran, Christina&D Pertinent Labs 02/15 Cl 111, BUN 36, Glucose 122 Nutritional Hx/Data Height 5 ft Height (Calculated Centimeters) 152.4 Current Weight (lbs) 86 lb Weight (Calculated Kilograms) 39.0 Weight (Calculated Grams) 72618.9 [place] Body Weight 106 Body Mass Index (BMI) 16.7 Weight Status Underweight GI Symptoms GI Symptoms Diarrhea Last BM 02/15 Skin Integrity/Comment: discoloration on buttocks, right and left buttocks blanchable redness Estimated Nutritional Goals BEE in Kcals: Using Current wt Calories/Kcals/Kg 30-35 Kcals Calculated 9760-9218 Protein: Using Current wt Protein g/k.2-1.4 Protein Calculated 48-56 Fluid: ml 1200-1400ml (1ml/kcal) Nutritional Problem 1. Problem Problem inadequate food intake Etiology diarrhea Signs/Symptoms: pt on NPO Malnutrition Alert Is there a minimum of two criteria No selected? Query Text:Check all the applicable criteria. A minimum of two criteria are recommended for diagnosis of either severe or non-severe malnutrition. Malnutrition Related to Morbid Obesity Malnutrition related to morbid obesity No Intervention/Recommendation Comments 1. Monitor NPO status. Start with clear liquid diet as tolerated if medically appropriate. 2. Monitor GI function, wt, labs and skin integrity 3. F/U as high risk in 2-3 days, 02/17-02/18 Expected Outcomes/Goals Expected Outcomes/Goals 1. PO intake to meet at least 75% of nutritional needs. 2. Wt stability, GI function to improve, skin to remain intact, labs to approach WNL.
[2018-02-19] MEDS ORDERED: Pantoprazole 40 mg EC Tab PO SCH (17:00)
[2018-02-20] MEDS ORDERED: POLYETHYLENE GLYCOL 3350 17 GM PACK PO SCH (09:00)
== END 2018-02-19 21:15 | disposition short-term general hospital (02) | DRG 720 ==
LOC: ER 18:41 → MSI 20:40
PROVIDERS: ADMIT Internal Medicine; ATTEND Internal Medicine
PROC: 0DBE8ZX Excision of Large Intestine, Via Natural or Artificial Opening Endoscopic, Diagnostic (ICD-10-PCS; principal; 2018-02-18)
DX: A41.9 Sepsis, unspecified organism (principal); R53.2 Functional quadriplegia; G83.9 Paralytic syndrome, unspecified; N20.9 Urinary calculus, unspecified; G80.9 Cerebral palsy, unspecified; K52.9 Noninfective gastroenteritis and colitis, unspecified; N39.0 Urinary tract infection, site not specified; I34.0 Nonrheumatic mitral (valve) insufficiency; M81.0 Age-related osteoporosis without current pathological fracture; Z68.1 Body mass index [BMI] 19.9 or less, adult; K56.41 Fecal impaction; B96.29 Other Escherichia coli [E. coli] as the cause of diseases classified elsewhere; F79 Unspecified intellectual disabilities; E86.0 Dehydration; K64.8 Other hemorrhoids; N28.9 Disorder of kidney and ureter, unspecified; Z23 Encounter for immunization
CPT/HCPCS: 36415-UA; 71045-TC; 76700-TC; 80048-TC; 80053-TC; 81001-TC; 83605; 83690-TC; 83735-TC; 83880-TC; 84443-TC; 85007-TC; 85025-TC; 85610-TC; 87046-90; 87086-90; 87230-TC; 90799; 94640; 94760; 96374; 96376; C9113; J1644; J1956; J2001; J2185; J2405; J2704; J3475; J3480; J7030; J7042; J7613; P9046; Q9967; Z7506; Z7610

== ENCOUNTER 2018-06-07 10:12 | Outpatient (CLI) | payer MEDICAID ==
--- NOTE | 2018-06-07 12:07 | Diagnostic Imaging Report ---
Exam: CT examination abdomen pelvis. HISTORY: Renal stones. Total DLP equals 316 CTDI equals 0.7 Prior report 02/15 2018 findings: Multiple contiguous thin section of the abdomen pelvis obtained from lower thorax to pubic symphysis with without the administration intravenous or oral contrast material. The study demonstrates normal aeration of lung parenchyma the bases. The liver and spleen are normal. The gallbladder is distended. The pancreas poorly seen. There is no evidence for obstructive uropathy. Bilateral extensive renal calculi are noted as well as a right-sided ureteral stent in place. There is evidence for severe impaction. No free fluid is noted. The urinary bladder is contracted. There is no evidence of diverticular disease of diverticulitis. Again noted deformity of the left hip joint. IMPRESSION: Severe fecal impaction. Distended, enlarged sigmoid colon with significant amount of fecal content. Bilateral renal calculi with right ureteral stent, unchanged upper prior examination.
== END 2018-06-07 10:42 ==
LOC: RAD 10:12
DX: N20.0 Calculus of kidney (principal); K56.41 Fecal impaction; N21.0 Calculus in bladder